=== PATIENT | male | born 1985 | race Caucasian/White ===

== ENCOUNTER 2019-01-25 10:02 | Outpatient (CLI) | payer OTHER, SELFPAY ==
[2019-01-25 11:14] LABS: HCT 44.7 % (40.0-50.0); HGB 14.9 g/dL (13.5-17.5); Mean Corp. HGB Concentration 33.3 g/dL (32.0-36.0); Mean Corpuscular Hemoglobin 28.2 pg (27.0-33.0); Mean Corpuscular Volume 84.7 fL (80-95); Mean Platelet Volume 9.1 fL (8.0-11.0); Platelet Count 349 x1000/uL (130-400); RBC 5.28 m/cumm (4.50-6.00)
[2019-01-25 11:42] LABS: ALT 38 U/L (16-63); AST 35 U/L (15-37); Albumin 4.1 g/dL (3.4-5.0); Alkaline Phosphatase 91 U/L (46-116); Anion Gap 9.4 mmol/L (3-11); BUN 19 mg/dL (7-18); Bilirubin, Total 0.6 mg/dL (0.2-1.0); CO2 29.6 mmol/L (21.0-32.0); CREATININE 1.16 mg/dL (0.70-1.30); Calcium 9.5 mg/dL (8.5-10.1); Calculated LDL 126 mg/dL; Chloride 104 mmol/L (98-107); Cholesterol 199 mg/dL (50-200); Glucose 95 mg/dL (70-100); HDL Cholesterol 50 mg/dL (40-60); Potassium 4.4 mmol/L (3.5-5.1); Sodium 143 mmol/L (136-145); Total Protein 7.9 g/dL (6.4-8.2); Triglyceride 119 mg/dL (30-150)
[2019-01-25 12:12] LABS: Uric Acid 11.2 mg/dL (3.5-7.2)
== END 2019-01-25 10:22 ==
PROVIDERS: PCP Nurse Practitioner; Visit Provider Nurse Practitioner
DX: M10.9 Gout, unspecified (principal); E66.9 Obesity, unspecified
CPT/HCPCS: 80053; 80061; 85027; 84550

== ENCOUNTER 2019-01-28 10:53 | Outpatient (CLI) | payer OTHER, SELFPAY ==
--- NOTE | 2019-01-28 10:45 | DI.RAD_ITS ---
EXAM: XR LUMBAR SPINE COMPLETE INDICATION: sacroiliac pain, low back pain, M53.3, M54.5. COMPARISON: No exams were available for comparison TECHNIQUE: 2D digital imaging was performed. FINDINGS: There are 5 lumbar type vertebral bodies. There is no spondylolysis or spondylolisthesis. The verte bral bodies, posterior elements and disc spaces are all well maintained. Small endplate osteophytes are seen at the L3-L4 disc level. No acute fracture or subluxation is present. Incidental note is m yousuf of densities in the left renal collecting system. The outline conforms to the collecting system. These may represent renal calculi. UPJ obstruction should be considered. IMPRESSION: 1. Minimal degenerative change seen in the lumbar spine. 2. Densities in the left abdomen conforming to the renal collecting system. Nephrolithiasis/staghorn calculi may have this appearance. A renal colic CT should be considered for further evaluation.
--- NOTE | 2019-01-28 10:45 | DI.RAD_ITS ---
EXAM: XR SACROILIAC JOINTS INDICATION: sacroiliac pain, left low back pain, M53.3, M54.5. COMPARISON: No exams were available for comparison TECHNIQUE: 2D digital imaging was performed. FINDINGS: There is no ankylosis. There are degenerative changes seen in the left sacroiliac joint. No erosion s are present. No suspicious lytic or sclerotic lesions are seen. No acute fracture or dislocation.
== END 2019-01-28 11:13 ==
PROVIDERS: PCP Nurse Practitioner; Visit Provider Nurse Practitioner
DX: M54.5 Low back pain (principal); M53.3 Sacrococcygeal disorders, not elsewhere classified; M47.816 Spondylosis without myelopathy or radiculopathy, lumbar region; N28.89 Other specified disorders of kidney and ureter
CPT/HCPCS: 72110; 72202

== ENCOUNTER 2019-04-28 19:45 | Emergency (ER) | payer OTHER, SELFPAY ==
[2019-04-28 19:48] VITALS: BP 161/96; PULSE 91; RESP 20; TEMP 36.8; O2SAT 98
--- NOTE | 2019-04-28 19:51 | ED.GENADUL_ITS ---
Discharge Plan Disposition Patient Disposition: HOME Condition: Good Discharge Details Chief Complaint: Sorethroat Clinical Impression: Pharyngitis Primary Care Provider: Leatha Marsh ED Provider: Sakina Briggs Home Meds and New Rx's Prescriptions: Continued allopurinol 100 mg tablet 100 mg PO DAILY Qty: 90 RF: 1 indomethacin 50 mg capsule 50 mg PO TID PRN (Reason: gout) Qty: 60 RF: 1 Discharge Instructions Instructions: Pharyngitis (ED) Additional Instructions: Encourage water intake. May use Tylenol and/or ibuprofen as needed for discomfort. Please cut back on chewing tobacco. I have sent a referral to ENT, you should hear from care professional in the next few days. If you do not hear from them, please call number listed below. If you develop fever/chills, difficulty swallowing quitting difficulty breathing or other new/worsening symptoms please seek care urgently once again. Referrals: Anjel Cotter MD [ [facility] STAFF PHYSICIAN] - Leatha Marsh NP [Primary Care Provider] - Medical Decision Making Patient is a pleasant 33-year-old male presents today with chief complaint of left side of his throat feeling dry. Denies foreign body sensation. Denies any pain. Has any fevers or chills. No recent travel. He has not had any difficulty with swallowing, eating, breathing. Reports feeling improved with drinking water. Patient has chewed tobacco since he was a freshman in high school and reports smoking prior to that. Denies a nadeem foreign body sensation but does report when his throat becomes dry he is gagging frequently and does believe that there is symptoms of irritation the left side of his throat. On exam, patient is resting comfortably. No visible distal swelling, no tracheal deviation. Posterior oropharynx is mildly erythematous. Patient does gag frequently during exam. He reports this is atypical for him and associates with the sensation he is having in his throat currently. Not appreciate any submandibular swelling, he does have a palpable lymph node on the left side. This is over the area of the unusual sensation. Handling secretions well. No change in his voice. Patient does nontoxic. At this time, do not see any evidence of emergent pathology. With him having no pain, fevers, difficulty swallowing, difficulty breathing not see any evidence of emergent etiology. I do not have concerns for abscess at this time. However, as the patient has been a long-term tobacco user, I am concerned for possible cancerous lesion. However, given the brief length of symptoms and that he is otherwise doing very well at this time, I do not think that CT is appropriate. Rather, I wonder if a direct visualization with ENT would be more appropriate. I will refer him to ENT for further evaluation. He was given return precautions. Patient was given Viscous Lidocaine prior to departure. Encourage water intake. All his questions or concerns were addressed and is agreement this plan. HPI General Mode of arrival: ambulatory . Date/Time Provider Initiated Documentation: 04/28/19 19:51 . Limitations to Documentation: no limitations . Information obtained by: patient, family and RN notes reviewed . History of Present Illness 33 year old M presents to the emergency department with the chief complaint of unusual dry sensation on left side of throat, described as moderate (worse when not drinking fluids), with intensity rated at 1 (denies any pain associated with this). Quality is described as other (dry), and is localized to the mouth. Patient reports no radiation. Patient started experiencing this day(s) (4) and it has been constant. Eating improves symptom(s), Patient notes denies chest pain, cough, diaphoresis, fever/chills, headaches, loss of appetite, nausea/vomiting, rash, shortness of breath and weakness. Patient did receive the following treatments prior to arrival, none Related Data Home Medications Medication Instructions Recorded Confirmed allopurinol 100 mg tablet 100 mg PO DAILY #90 tab 07/02/18 04/28/19 indomethacin 50 mg capsule 50 mg PO TID PRN #60 cap 07/02/18 04/28/19 Previous Rx's Medication Instructions Recorded allopurinol 100 mg tablet 100 mg PO DAILY #90 tab 07/02/18 indomethacin 50 mg capsule 50 mg PO TID PRN #60 cap 07/02/18 Allergies Allergy/AdvReac Type Severity Reaction Status Date / Time amoxicillin Allergy rash Unverified 04/28/19 19:51 Penicillins Allergy rash Verified 04/28/19 19:51 General Stated Complaint: Sorethroat MARIELLA: 3 Review of Systems Constitutional Constitutional: Reports as per HPI and Denies headache(s) Eyes Eyes: Reports as per HPI, Denies eye discharge and Denies irritation ENT Ears, Nose, Mouth, and Throat: Reports as per HPI and Denies headache(s) Cardiovascular Cardiovascular: Reports as per HPI, Denies chest pain and Denies dyspnea Respiratory Respiratory: Reports as per HPI and Denies dyspnea Gastrointestinal Gastrointestinal: Reports as per HPI, Denies abdominal pain, Denies change in bowel habits, Denies nausea and Denies vomiting Integumentary/Breasts Skin/Breast: Reports as per HPI and Denies rash Neurologic Neurologic: Reports as per HPI and Denies headache(s) FOR[facility]LY [facility] Medical History Chronic left sacroiliac joint pain (Acute) Gout (Chronic) Right Foot Family History (Updated 07/02/18 @ 15:17 by Cesia Cordero RN) Maternal Grandmother , lung cancer No problems noted. Mother Lung cancer Sister No problems noted. 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 Frequency: 3-4 times per week Seatbelt use: always Working smoke detector in home: Yes Fire extinguisher in home: Yes Carbon monox detector in home: Yes Firearms in home: No Do you feel safe at home: Yes Do you feel safe in your relationship?: Yes Exam Const General: cooperative, healthy appearing, comfortable, no acute distress, well developed and well groomed Nutritional Appearance: well nourished and overweight Orientation: alert and awake [facility] Head: normal to inspection, normocephalic and atraumatic Ears: hearing grossly normal bilaterally, external ears normal and TM's normal bilaterally General nose exam: external nose normal and nares normal Face and sinus: normal facial exam, sinuses nontender and face symmetric Mouth: oral mucosae normal, lip normal, tongue normal, oropharynx normal and moist mucous membranes Teeth and gingiva: dentition normal Throat: posterior oropharynx abnormal (mild erythema), tonsils normal and uvula midline Eyes General: appearance normal, both eyes and all related structures Neck Neck: normal visual inspection, full ROM, no lymphadenopathy, no meningeal signs, trachea midline, supple, no lymphadenopathy noted, no midline deformity, nontender, no torticollis, no tracheal deviation and No submandibular swelling Thyroid: thyroid normal Resp Effort & Inspection: normal respiratory effort, able to speak in complete sentences and no respiratory distress Auscultation: clear to auscultation bilaterally, no rales, no rhonchi and no wheezes Cardio Rate: regular rate Rhythm: regular rhythm Heart Sounds: S1 normal and S2 normal Skin General skin exam: no rashes or lesions noted Neuro General: alert and awake Cognition: normal cognition Speech: speech normal Gait: normal gait Psych Appearance: grossly normal and well kempt Mental Status: mental status grossly normal Speech and Movement: speech and movement normal Course Vital Signs Vital signs: Vital Signs Temperature 36.8 C 04/28/19 19:48 Pulse 91 H 04/28/19 19:48 Respiratory Rate 04/28/19 19:48 Blood Pressure 161/96 H 04/28/19 19:48 Pulse Oximetry 98 04/28/19 19:48 Temperature 36.8 C 04/28/19 19:48 Temperature Source Temporal Artery Scan 04/28/19 19:48 Pulse 91 H 04/28/19 19:48 Respiratory Rate 04/28/19 19:48 Blood Pressure 161/96 H 04/28/19 19:48 Pulse Oximetry 98 04/28/19 19:48 Oxygen Delivery Method Room Air 04/28/19 19:48 Oxygen Flow Rate 0 04/28/19 19:48 Pain Level 0 04/28/19 19:48
[2019-04-28] MEDS: Lidocaine 2% Viscous 15 ML CUP PO (20:19)
[2019-04-28 20:23] VITALS: BP 161/96; PULSE 91; RESP 20; TEMP 36.8; O2SAT 98
--- NOTE | 2019-04-28 20:53 | NUR.NOTE ---
FAXED REFERAL TO ENT ON 04/28/19Nursing Note:
== END 2019-04-28 20:25 | disposition home or self-care (01) ==
LOC: ER 20:51
PROVIDERS: Emergency Provider Physician Assistant; PCP Nurse Practitioner
DX: J02.9 Acute pharyngitis, unspecified (principal); F17.220 Nicotine dependence, chewing tobacco, uncomplicated
CPT/HCPCS: 99283

== ENCOUNTER 2019-05-08 14:28 | Emergency (ER) | payer OTHER, SELFPAY ==
[2019-05-08] VITALS (25 sets, daily range): BP systolic 127–142; BP diastolic 68–90; PULSE 70–84; RESP 16–18; TEMP 36.1–36.8; O2SAT 92–98
--- NOTE | 2019-05-08 14:45 | DI.CT_ITS ---
EXAM: CT RENAL COLIC WO CLINICAL HISTORY: RIGHT FLANK PAIN TECHNIQUE: Images were performed from the level of the adrenals through the ischial tuberosities wit hout IV or oral contrast. COMPARISON: XR LUMBAR SPINE COMPLETE from 01/28/2019 FINDINGS: There is moderate to severe right hydronephrosis. There is a 12 millimeter stone in the proximal rig ht ureter. Two additional 3 millimeter stones are seen more superiorly in the proximal ureter. Mult iple small stones are seen at the lower pole of the right kidney. Additional calculi are seen distal ly in the right ureter, measuring 19 millimeters in length x 7 millimeters in width. There is some s tranding around the right ureter. There is a large staghorn calculus seen in the left renal pelvis. There is severe dilatation of the collecting system. Multiple other stones are seen in the upper, mid and lower pole collecting system s. The renal parenchymal thickness appears normal. No calcifications or ureteral dilatation is seen distal to the ureteropelvic junction. The bladder shows wall thickening, which is nonspecific. Fin dings could be related to lack of distention. Cystitis is also possible. No bladder calculi are see n. The liver shows mild fatty infiltration. The gallbladder, spleen, pancreas, adrenals and aorta are u nremarkable. Appendix appears normal. There is no bowel dilatation or wall thickening. There is no free air or free fluid. Spine and pelvis are unremarkable. IMPRESSION: Moderate to severe right hydronephrosis. There are multiple calcifications in the right ureter, the l argest is seen distally, just above the ureterovesical junction, measuring 19 millimeters in length. Multiple bilateral renal calculi are seen including a large staghorn calculus in the left renal pelvi s.
--- NOTE | 2019-05-08 14:46 | W.ED.GENAD ---
Discharge Plan Disposition Patient Disposition: [facility] Condition: Stable Discharge Details Chief Complaint: FlankPain Clinical Impression: Nephrolithiasis Primary Care Provider: Leatha Marsh ED Provider: Judy Lombardi Home Meds and New Rx's Prescriptions: No Action indomethacin 50 mg capsule 50 mg PO TID PRN (Reason: gout) Qty: 60 RF: 1 Discharge Data Discharge Date/Time-TO BE ENTERED AT DEPARTURE: 05/08/19 23:40 Medical Decision Making <CLAUDIA Woodall - Last Filed: 05/09/19 05:49> Patient is a pleasant 33 year old male, accompanied by signficant other, with c/c of right sided flank pain. States that he has a history of kidney stones, states that htis feels the same as when he has had them previously. Last stone was 7 months ago. No fevers/chills. Patient reports that the pain radiates from the right flank anteriorly and towards the pelvis. He denies any testicular pain, testicular swelling, penile discomfort, penile discharge. Denies any dysuria. He does report the pain increases after urination. No hematemesis, hematuria. States that he is vomited x5 today. Is currently endorsing nausea. Feels he may be Dehydrated enough unable to keep any fluids down. Denies any recent travel. No known sick contacts. On exam, patient appears nontoxic. He appears well-hydrated. Normal abdominal exam. Right-sided CVA tenderness. Plan to obtain UA, laboratory evaluation and imaging to evaluate size and location of stone. Will give Zofran to help with nausea and Toradol for discomfort. We are contacted by the radiologist. She advised this patient has a very large stones and bilateral hydronephrosis. She does staghorn stones with a large being 6 cm on the left side. This is not the tender area for the patient. On the right side, patient has a 7 x 19 mm stone with moderate to severe hydronephrosis on both sides. She does report that the large staghorn stones had been seen historically on previous imaging. She states that she was able to visualize these on previous x-rays. Will consult with orthopedics. Labs reviewed. Patient is mild leukocytosis of 12.85 with absolute neutrophil count of 10.3. Patient has an acute kidney injury with creatinine of 2.58. Patient is being hydrated. Will consult immediately with urology. Urinalysis concerning for large amount of blood, 20-50 WBCs, few epithelial cells and few bacteria. Will consult with urologist and see if they would like a straight cath on this patient. Feel that he will need intervention sooner rather than later. At the end of my shift, care was transitioned to Betzaida Lombardi NP with follow-up from urology and disposition pending. <Judy Lombardi - Last Filed: 05/08/19 23:02> Care assumed from CLAUDIA Woodall see previously documented history and physical. At this time awaiting callback from Dr. Fernandez urology consult for possible admission. CT result is noted below. EXAM: CT RENAL COLIC WO CLINICAL HISTORY: RIGHT FLANK PAIN TECHNIQUE: Images were performed from the level of the adrenals through the ischial tuberosities without IV or oral contrast. COMPARISON: XR LUMBAR SPINE COMPLETE from 01/28/2019 FINDINGS: There is moderate to severe right hydronephrosis. There is a 12 millimeter stone in the proximal right ureter. Two additional 3 millimeter stones are seen more superiorly in the proximal ureter. Multiple small stones are seen at the lower pole of the right kidney. Additional calculi are seen distally in the right ureter, measuring 19 millimeters in length x 7 millimeters in width. There is some stranding around the right ureter. There is a large staghorn calculus seen in the left renal pelvis. There is severe dilatation of the collecting system. Multiple other stones are seen in the upper, mid and lower pole collecting systems. The renal parenchymal thickness appears normal. No calcifications or ureteral dilatation is seen distal to the ureteropelvic junction. The bladder shows wall thickening, which is nonspecific. Findings could be related to lack of distention. Cystitis is also possible. No bladder calculi are seen. The liver shows mild fatty infiltration. The gallbladder, spleen, pancreas, adrenals and aorta are unremarkable. Appendix appears normal. There is no bowel dilatation or wall thickening. There is no free air or free fluid. Spine and pelvis are unremarkable. IMPRESSION: Moderate to severe right hydronephrosis. There are multiple calcifications in the right ureter, the largest is seen distally, just above the ureterovesical junction, measuring 19 millimeters in length. Multiple bilateral renal calculi are seen including a large staghorn calculus in the left renal pelvis. [id number]: Total DLP = 0.00 mGy-cm Ordered By: Sakina Briggs 165: Spoke with Dr. Fernandez with urology who reccomends transfer to facility with greater capacity for this size of stones than what he has at this facility. Page out to [facility]. 175: Spoke with Dr. Hines with Urology at [facility], discussed case, who agrees to accept patient. 2028: Patient reevaluation he is still not requesting any pain medications and states that his pain is tolerable at this time. Discussed waiting for transport at this time. He will be going to [address] at [facility]. 2258: Patient given Fentanyl 50 mcg IV for pain, EMS on way to pick patient up. Will give one more dose of Fentanyl 50mcg for a total of 100mcg. Patient remained hemodynamically stable throughout stay. This text was generated using emids dictation system, please disregard any oddities of phrase or misspellings. HPI <CLAUDIA Woodall - Last Filed: 05/09/19 05:49> General Mode of arrival: ambulatory. Date/Time Provider Initiated Documentation: 05/08/19 14:29. Limitations to Documentation: no limitations. Information obtained by: patient and family (significant other). History of Present Illness 33 year old M presents to the emergency department with the chief complaint of right flank pain, described as moderate and similar to prior episodes, Quality is described as aching, and is localized to the back. Patient abdomen. Patient started experiencing this day(s) (2) and it has been constant. No relieving factors improve symptom(s), No exacerbating factors reported . Patient notes loss of appetite and nausea/vomiting; denies chest pain, cough, fever/chills, rash, shortness of breath and weakness. Patient did receive the following treatments prior to arrival, none Related Data Home Medications Medication Instructions Recorded Confirmed indomethacin 50 mg capsule 50 mg PO TID PRN #60 cap 07/02/18 05/08/19 Previous Rx's Medication Instructions Recorded indomethacin 50 mg capsule 50 mg PO TID PRN #60 cap 07/02/18 Allergies Allergy/AdvReac Type Severity Reaction Status Date / Time amoxicillin Allergy rash Unverified 05/08/19 14:37 Penicillins Allergy rash Verified 05/08/19 14:37 General Stated Complaint: FlankPain MARIELLA: 3 Review of Systems <CLAUDAI Woodall - Last Filed: 05/09/19 05:49> Constitutional Constitutional: Reports as per HPI, Denies chills, Denies fatigue, Denies fever(s) and Denies headache(s) ENT Ears, Nose, Mouth, and Throat: Denies headache(s) Cardiovascular Cardiovascular: Reports as per HPI, Denies chest pain and Denies dyspnea Respiratory Respiratory: Reports as per HPI, Denies cough and Denies dyspnea Gastrointestinal Gastrointestinal: Reports as per HPI, Denies coffee ground emesis, Reports constipation (last BM 2 days ago, atypical for patient), Reports nausea and Reports vomiting (vomited x 5) Genitourinary Genitourinary: Reports as per HPI, Denies hematuria, Denies difficulty urinating, Denies genital pain, Denies dysuria, Reports flank pain, Denies penile discharge, Denies scrotal swelling, Denies testicular mass, Denies testicular pain, Denies urinary frequency and Denies urinary hesitancy Musculoskeletal Musculoskeletal: Reports as per HPI Neurologic Neurologic: Denies headache(s) Endocrine Endocrine: Denies fatigue PFSH <CLAUDIA Woodall - Last Filed: 05/09/19 05:49> Family History (Updated 07/02/18 @ 15:17 by Cesia Cordero RN) Maternal Grandmother , lung cancer No problems noted. Mother Lung cancer Sister No problems noted. 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 Frequency: 3-4 times per week Seatbelt use: always Working smoke detector in home: Yes Fire extinguisher in home: Yes Carbon monox detector in home: Yes Firearms in home: No Do you feel safe at home: Yes Do you feel safe in your relationship?: Yes Exam <CLAUDIA Woodall - Last Filed: 05/09/19 05:49> Const General: cooperative, healthy appearing, comfortable, no acute distress and well developed Nutritional Appearance: average body habitus and well nourished Orientation: alert and awake HENMT Mouth: moist mucous membranes Resp Effort & Inspection: normal respiratory effort and no respiratory distress Auscultation: clear to auscultation bilaterally, no rales, no rhonchi and no wheezes Cardio Rate: regular rate Rhythm: regular rhythm Heart Sounds: S1 normal and S2 normal GI Inspection: normal to inspection, no edema and non-distended Palpation: soft, no hepatosplenomegaly, no guarding, no hernias, no pulsatile masses and nontender Percussion: normal to percussion Auscultation: normal bowel sounds Back/Spine/Pelvis Back: CVA tenderness (right) Skin General skin exam: no rashes or lesions noted Neuro General: alert and awake Cognition: normal cognition Speech: speech normal Gait: normal gait Psych Appearance: grossly normal and well kempt Mental Status: mental status grossly normal Speech and Movement: speech and movement normal Course <CLAUDIA Woodall - Last Filed: 05/09/19 05:49> Vital Signs Vital signs: Vital Signs Temperature 36.1 C L 05/08/19 14:32 Pulse 84 05/08/19 14:32 Respiratory Rate 18 05/08/19 14:32 Blood Pressure 142/90 H 05/08/19 14:32 Pulse Oximetry 95 05/08/19 14:32 Temperature 36.1 C L 05/08/19 14:32 Temperature Source Temporal Artery Scan 05/08/19 14:32 Pulse 84 05/08/19 14:32 Respiratory Rate 18 05/08/19 14:32 Respiratory Effort Non-Labored 05/08/19 14:37 Blood Pressure 142/90 H 05/08/19 14:32 Blood Pressure Position Sitting 05/08/19 14:32 Pulse Oximetry 95 05/08/19 14:32 Oxygen Delivery Method Room Air 05/08/19 14:32 Oxygen Flow Rate 0 05/08/19 14:32 Pain Level 3 02/21/20 14:32 Sign Out <CLAUDIA Woodall - Last Filed: 05/09/19 05:49> Sign Out Data: Sign Out Comment: Care transition to Judy Lombardi NP with follow-up with urology pending. Last updated by Sakina Briggs PA at 05/08/19 16:23
[2019-05-08] MEDS: Normal Saline 1,000 ML 1000 ML IV (14:56)
[2019-05-08] MEDS: Ondansetron 4 MG/2 ML VIAL IVP ×3 (14:56→17:18)
[2019-05-08 14:57] LABS: Bilirubin Negative (Negative); Blood Large (Negative); Clarity Clear (Clear); Glucose Negative (Negative); Ketones Negative (Negative); Leukocyte Esterase Large (Negative); Nitrite Negative (Negative); Specific Gravity <= 1.005 (1.005-1.025); Urobilinogen 0.2 EU/dL (Up TO 0.2); pH 6.5 (5-8)
[2019-05-08] MEDS: Ketorolac 30 MG/ML VIAL IVP (14:57)
--- NOTE | 2019-05-08 15:07 | NUR.NOTE ---
Nursing Note: Initial 4mg Zofran was charted however not administered due to contamination. Provider Elijah made aware. Addition 4mg ordered IVP.
[2019-05-08 15:09] LABS: Abs Immature Grans 0.03 k/cumm (0.0-0.09); Absolute Basophil Count 0.03 k/cumm (0.0-0.2); Absolute Lymphocyte Count 1.43 k/cumm (1.2-3.4); Absolute Monocyte Count 0.94 k/cumm (0.11-0.7); Absolute Neutrophil Count 10.33 k/cumm (1.2-6.7); Basophils % 0.2; Eosinophils % 0.8; HCT 42.1 % (40.0-50.0); HGB 13.9 g/dL (13.5-17.5); Immature Grans % 0.2 %; Lymphocytes % 11.1; Mean Corpuscular Hemoglobin 27.9 pg (27.0-33.0); Mean Corpuscular Volume 84.4 fL (80-95); Mean Platelet Volume 8.8 fL (8.0-11.0); Monocytes % 7.3; Neutrophils % 80.4; Platelet Count 364 x1000/uL (130-400); RBC 4.99 m/cumm (4.50-6.00); RBC Distribution Width 13.5 % (11.8-14.1); White Blood Cell Count 12.85 k/cumm (4.4-10.8)
[2019-05-08 15:16] LABS: Epithelial Cells Few HPF (Negative); WBC 20-50 HPF (0-5)
[2019-05-08 15:17] LABS: Bacteria Few HPF (Negative); C & S Indicated? Yes; Casts Negative LPF (Negative); Crystals Negative HPF (Negative); Mucus Negative (Negative)
[2019-05-08 15:37] LABS: ALT 21 U/L (16-63); AST 19 U/L (15-37); Albumin 3.6 g/dL (3.4-5.0); Alkaline Phosphatase 84 U/L (46-116); Anion Gap 7.9 mmol/L (3-11); BUN 26 mg/dL (7-18); Bilirubin, Total 0.5 mg/dL (0.2-1.0); CO2 31.1 mmol/L (21.0-32.0); CREATININE 2.58 mg/dL (0.70-1.30); Chloride 103 mmol/L (98-107); Estimated GFR 28.83 (mL/min/1.73m2); Glucose 112 mg/dL (74-106); Potassium 3.6 mmol/L (3.5-5.1); Sodium 142 mmol/L (136-145); Total Protein 7.6 g/dL (6.4-8.2)
[2019-05-08] MEDS: CIPROFLOXACIN 400 MG/200 ML BAG 200 MG IVPB (17:19)
--- NOTE | 2019-05-08 19:34 | NUR.NOTE ---
Nursing Note: PT report transferred to Suri (RN) at [facility]. All PT care information, treatments, and interventions provided at this time. Currently awaiting ambulance transport.
--- NOTE | 2019-05-08 20:51 | NUR.NOTE ---
Nursing Note: PT care report transferred to Obdulio (MACIE).
[2019-05-08] MEDS: fentaNYL 100 MCG/2 ML VIAL 50 MCG IVP ×2 (21:49→23:13)
[2019-05-08] MEDS: Normal Saline Flush 10 ML SYR IVP ×2 (21:49→23:14)
== END 2019-05-08 23:40 | disposition short-term general hospital (02) ==
PROVIDERS: Physician Assistant; Emergency Provider Registered Nurse Emergency; PCP Nurse Practitioner
DX: N20.0 Calculus of kidney (principal)
CPT/HCPCS: 80053; 96361; 96365; 96375; 96376; 99285; 74176; 81003; 81015; 85025; 87086; J0744; J1885; J2405; J3010

== ENCOUNTER 2019-05-31 20:55 | Emergency (ER) | payer OTHER, SELFPAY ==
[2019-05-31 20:59] VITALS: BP 115/87; PULSE 111; TEMP 36.9; O2SAT 99
--- NOTE | 2019-05-31 21:20 | ED.GENADUL_ITS ---
Discharge Plan Disposition Patient Disposition: HOME Condition: Stable Discharge Details Chief Complaint: Urinary Clinical Impression: Pyelonephritis Primary Care Provider: Leatha Marsh ED Provider: Judy Lombardi Home Meds and New Rx's Prescriptions: New sulfamethoxazole-trimethoprim 800-160 mg tablet 1 tab PO BID 10 Days Qty: 20 RF: 0 Continued indomethacin 50 mg capsule 50 mg PO TID PRN (Reason: gout) Qty: 60 RF: 1 tamsulosin [Flomax] 0.4 mg capsule 0.4 mg PO DAILY RF: 0 methylprednisolone [Medrol (David)] 4 mg tablets,dose pack See Rx Instructions .Route .COMPLEX Qty: 21 RF: 0 Discharge Instructions Instructions: Urinary Tract Infection in Men (ED), Catheter-associated Urinary Tract Infection (ED) Additional Instructions: Take antibiotic as directed. Take entire course of antibiotics even if feeling better. Stay out of the sun this antibiotic can make you more sensitive to sunlight. Keep scheduled appointment at [facility] for the of this month. Follow-up or be seen sooner if any worsening, fever, concerns. Take Tylenol every 4-6 hours as needed for fever. Should start feeling better within the next 2 to 3 days if you start feeling worse please return to the ED. Increase oral fluids. Referrals: Leatha Marsh, LADLE REPAIRMAN [Primary Care Provider] - Medical Decision Making 32-year-old male presents with fever and hematuria status post bilateral nephrostomy tube placement at [facility] approximately 1 week ago. Patient was originally diagnosed with a 19 mm ureter stone and multiple very large kidney stones to the collecting ducts. Significant other states that she change the dressing on his left tube insertion site and noticed purulent drainage yesterday. That nephrostomy tube has been in place for 2 weeks. The tube on his right side was placed 1 week ago and has initial dressing on it. The tubes at this time appear to be draining adequately. This is associated with mild burning at insertion sites and diaphoresis. Labs ordered including CBC, CMP urinalysis and lactate. Culture swabs obtained for nephrostomy tube insertion sites and blood cultures ordered. Plan is to consult with urology at [facility] regarding patient. Initial work-up shows a WBC count of 14,000, positive leukocytes and nitrites and urinalysis lactate is 1.4 which is negative at this time. 2203: Call placed to urology at [facility] for consult. 2214: Spoke with Dr. Olmos with [facility] regarding patient She recommends CT without contrast. And starting antibiotics. Levofloxacin 750mg given IVPB in department due to PCN allergy. 2307: Spoke with Dr. Olmos again regarding CT, she reports that catheters seem to be in the right place and patient should tolerate outpatient oral antibiotics. She recommends Bactrim after last urine culture grew staph. Will place patient on Bactrim and DC home with strict return instructions to return or follow up with [facility] prior to scheduled appointment on 06-05-19. FINDINGS: Lungs: Streaky atelectasis at the lung bases. Liver: Grossly unremarkable unenhanced liver. Gallbladder and bile ducts: Gallbladder partially collapsed. No calcified gallstones seen. No biliary dilatation. Pancreas: Grossly unremarkable unenhanced pancreas. Spleen: Grossly unremarkable unenhanced spleen. Adrenals: Normal appearing adrenal glands. Kidneys and ureters: Multiple right pelvic ureteral stones with the largest distal stone measuring 6 mm x 9 mm maximum axial dimension on image 128 of series 2 with stones extending over a length of approximately 3.3 cm upstream to the obstructing distal-most stone. Upstream right-sided ureterectasis and periureteral edema with mild prominence of the right renal collecting system. Percutaneous nephrostomy catheter in situ on the right. Nonobstructing 4 mm x 11 mm right lower pole renal calculus. Massive staghorn calculus largely filling the left renal pelvis measuring 3.0 cm x BISI GOMEZ Preliminary Radiology Report CAR PINCHER (QA) DISCREPANCY? If there is a discrepancy between the preliminary and final interpretation, please notify [facility] via [email or web address]. If you do not have access to our QA portal, call our QA team at [phone] CONFIDENTIALITY STATEMENT This report is intended only for the use of the referring physician, and only in accordance with law, If you received this in error, call [phone] Page 2 of 2 3.7 cm x 4.4 cm. Multiple large and small nonobstructing left renal calculi. Percutaneous nephrostomy catheter distally looped around the staghorn calculus in the renal pelvis. Moderate peripelvic and proximal periureteral edema but no gross hydronephrosis. Punctate focus of gas in the left renal collecting system, presumably stent related. No distal left ureteral calculus. Stomach and bowel: No oral contrast. Stomach partially distended with ingested material. No small bowel dilatation to suggest obstruction. Normal-appearing colon. No evidence of diverticulitis or colitis. Appendix: Normal appendix. Intraperitoneal space: No gross ascites or free air. Vasculature: Normal caliber abdominal aorta. Lymph nodes: No pathologically enlarged mesenteric, retroperitoneal, or pelvic sidewall lymph nodes. Bladder: Urinary bladder completely collapsed. Reproductive: Normal-appearing prostate gland and seminal vesicles. Bones/joints: No acute fracture seen among the bones of the abdomen or pelvis. Soft tissues: No significant ventral or inguinal hernia. IMPRESSION: 1. Obstructing 6 mm x 9 mm distal right ureteral calculus. Multiple additional distal right ureteral calculi extending over a length of 3.3 cm upstream from the obstructing stone. Diffuse right-sided ureterectasis and mild prominence of the right renal collecting system. Percutaneous nephrostomy catheter in situ on the right. 2. Massive staghorn calculus largely filling the left renal pelvis. Multiple large and small nonobstructing left renal calculi. Percutaneous nephrostomy catheter with its distal portion encircling the staghorn calculus in the renal pelvis. Moderate peripelvic and proximal periureteral edema but no superimposed hydronephrosis. Thank you for allowing us to participate in the care of your patient. Dictated and Authenticated by: Ron Ochoa MD 05/31/2019 11:03 PM Eastern Time ([place] & [place]) This time I feel it is safe for patient to be discharged home on oral antibiotics. Strict return instructions given to return if worsening in any way. Blood cultures at this time are pending, wound culture also obtained and shows rare gram-positive cocci no WBCs. Diagnosis given for pyelonephritis and catheter related UTI. Differential diagnosis includes UTI, renal perforation, renal abscess, septicemia. HPI General Mode of arrival: ambulatory . Date/Time Provider Initiated Documentation: 05/31/19 20:56 . Limitations to Documentation: no limitations . Information obtained by: patient . HPI Narrative: 32-year-old male presents with fever and hematuria status post bilateral nephrostomy tube placement at [facility] approximately 1 week ago. Patient was originally diagnosed with a 19 mm ureter stone and multiple very large kidney stones to the collecting ducts. Significant other states that she change the dressing on his left stent and noticed purulent drainage yesterday. That tube has been in place for 2 weeks. The tube on his right side was placed 1 week ago and has initial dressing on it. This is associated with mild burning and insertion sites and diaphoresis. Related Data Home Medications Medication Instructions Recorded Confirmed indomethacin 50 mg capsule 50 mg PO TID PRN #60 cap 07/02/18 05/31/19 methylprednisolone 4 mg tablets in See Rx Instructions .ROUTE 05/25/19 05/31/19 a dose pack .COMPLEX #21 dose pk tamsulosin 0.4 mg capsule 0.4 mg PO DAILY 05/25/19 05/31/19 sulfamethoxazole-trimethoprim 1 tab PO BID 10 Days #20 tab 05/31/19 Previous Rx's Medication Instructions Recorded indomethacin 50 mg capsule 50 mg PO TID PRN #60 cap 07/02/18 methylprednisolone 4 mg tablets in See Rx Instructions .ROUTE 05/25/19 a dose pack .COMPLEX #21 dose pk sulfamethoxazole-trimethoprim 1 tab PO BID 10 Days #20 tab 05/31/19 Allergies Allergy/AdvReac Type Severity Reaction Status Date / Time amoxicillin Allergy rash Unverified 05/31/19 21:06 Penicillins Allergy rash Verified 05/31/19 21:06 General Stated Complaint: Urinary MARIELLA: 3 Review of Systems Narrative: Constitutional: Negative for weight loss, alert and oriented, well groomed, normal body habitus, appears comfortable. Positive subjective fever HEENT: Denies trauma, headaches, blurry vision, nasal discharge, sore throat, trouble swallowing. Chest: Denies chest pain, palpitations, irregular rhythm, hypertension. Respiratory: Denies Shortness of breath, cough, hemoptysis. GI: Denies abdominal pain, nausea, vomiting, diarrhea, constipation. : Denies rectal bleeding. Positive hematuria and flank pain bilaterally. Neuro: Denies dizziness, blurry vision, weakness, syncope, headache or facial numbness. Hematologic: Denies easy bruising, intolerance to heat or cold, hair loss. [facility] Medical History Chronic left sacroiliac joint pain (Acute) Gout (Chronic) Right Foot Family History Maternal Grandmother , lung cancer No problems noted. Mother Lung cancer Sister No problems noted. 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 Frequency: 3-4 times per week Seatbelt use: always Working smoke detector in home: Yes Fire extinguisher in home: Yes Carbon monox detector in home: Yes Firearms in home: No Do you feel safe at home: Yes Do you feel safe in your relationship?: Yes Exam Narrative Exam Narrative: Constitutional: Allert and oriented x3. Appears stated age. Normal body habitus. Patient is diaphoretic. Head: Normocephalic, no trauma. Eyes: Pupils PERRLA, Red reflex noted, EOM's intact. Eyelids symmetrical withour lesions, discharge, or swelling. ENT: Bilateral TM's WNL, External ear normal to inspection, no mastoid TTP, swelling, or erythema, Nasal turbinates WNL, no nasal discharge. Normal dentition, Posterior pharynx WNL, no exudate. Chest: RRR, Normal S1, S2, distal pulses intact. Resp: Lungs clear to auscultation bilaterally, no wheezes, rales, or rhonchi. Musculoskeletal: Normal gait, 5/5 strength to all four extremities. Skin: No suspicious rashes or lesions. Capillary refill ?2 sec. dressings changed to the bilateral tube sites and some brownish purulent drainage and small amount of erythema noted around the insertion site to the left tube. Right tube insertion site just shows dried blood. Neurologic: Cranial nerves II-XII intact. Alert and oriented x 3. DTR's intact. Hematologic/Lymphatic: No ecchymosis, no lymphadenopathy. Course Vital Signs Vital signs: Vital Signs Temperature 36.9 C 05/31/19 20:59 Pulse 111 H 05/31/19 20:59 Blood Pressure 115/87 05/31/19 20:59 Pulse Oximetry 99 05/31/19 20:59 Temperature 36.9 C 05/31/19 20:59 Temperature Source Oral 05/31/19 20:59 Pulse 111 H 05/31/19 20:59 Respiratory Effort Non-Labored 05/31/19 21:07 Blood Pressure 115/87 05/31/19 20:59 Blood Pressure Position Sitting 05/31/19 20:59 Pulse Oximetry 99 05/31/19 20:59 Oxygen Delivery Method Room Air 05/31/19 20:59 Oxygen Flow Rate 0 05/31/19 20:59 Pain Level 5 05/31/19 21:07
[2019-05-31 21:29] LABS: Bilirubin Negative (Negative); Blood Large (Negative); Clarity Cloudy (Clear); Glucose Negative (Negative); Ketones Negative (Negative); Leukocyte Esterase Large (Negative); Nitrite Positive (Negative); Urobilinogen 0.2 EU/dL (Up TO 0.2)
[2019-05-31 21:37] LABS: Abs Immature Grans 0.04 k/cumm (0.0-0.09); Absolute Basophil Count 0.04 k/cumm (0.0-0.2); Absolute Eosinophil Count 0.45 k/cumm (0.0-0.7); Absolute Lymphocyte Count 2.51 k/cumm (1.2-3.4); Absolute Monocyte Count 1.28 k/cumm (0.11-0.7); Absolute Neutrophil Count 10.55 k/cumm (1.2-6.7); Basophils % 0.3; HCT 40.6 % (40.0-50.0); HGB 13.3 g/dL (13.5-17.5); Immature Grans % 0.3 %; Lymphocytes % 16.9; Mean Corp. HGB Concentration 32.8 g/dL (32.0-36.0); Mean Corpuscular Hemoglobin 27.4 pg (27.0-33.0); Mean Corpuscular Volume 83.5 fL (80-95); Mean Platelet Volume 8.5 fL (8.0-11.0); Monocytes % 8.6; Neutrophils % 70.9; Platelet Count 463 x1000/uL (130-400); RBC 4.86 m/cumm (4.50-6.00); RBC Distribution Width 13.4 % (11.8-14.1); White Blood Cell Count 14.88 k/cumm (4.4-10.8)
[2019-05-31 21:42] LABS: RBC >50 HPF (0-2); WBC >50 HPF (0-5)
[2019-05-31 21:43] LABS: C & S Indicated? Yes
[2019-05-31 21:55] LABS: ALT 25 U/L (16-63); AST 17 U/L (15-37); Albumin 3.5 g/dL (3.4-5.0); Alkaline Phosphatase 111 U/L (46-116); Anion Gap 11.7 mmol/L (3-11); BUN 29 mg/dL (7-18); Bilirubin, Total 0.4 mg/dL (0.2-1.0); CO2 29.3 mmol/L (21.0-32.0); CREATININE 1.49 mg/dL (0.70-1.30); Calcium 8.7 mg/dL (8.5-10.1); Chloride 99 mmol/L (98-107); Estimated GFR 54.32 (mL/min/1.73m2); Glucose 102 mg/dL (74-106); Potassium 4.1 mmol/L (3.5-5.1); Sodium 140 mmol/L (136-145); Total Protein 8.3 g/dL (6.4-8.2)
--- NOTE | 2019-05-31 22:15 | DI.CT_ITS ---
EXAM: CT RENAL COLIC WO CLINICAL HISTORY: Evaluate nephrostomy tubes. TECHNIQUE: Imaging Protocol: Axial computed tomography images with coronal and sagittal reformatted images were created and reviewed. COMPARISON: CT RENAL COLIC WO from 05/08/2019 FINDINGS: ABDOMEN: Lung Bases: Bilateral basilar infiltrates. This may represent atelectasis or pneumonia. Liver: Normal density. No measurable mass. Gallbladder and biliary tract: No radiodense calculus or dilation. Pancreas: Normal density, no abnormal calcifications or inflammatory process. Spleen: Normal. Kidneys: Normal size, contour and axis. On the right, there are stones seen within the distal ureter. The largest is the most distal and measures 9 mm in diameter. There are several stones in the uret er upstream. This does cause mild to moderate hydroureteronephrosis. There is right nephrolithiasis . The right nephrostomy tube is in good position within the renal pelvis. On the left, there is a l arge staghorn calculus present. There are multiple nonobstructing stones in the left kidney. There is no hydronephrosis. There is a left nephrostomy tube in position. Adrenal glands: No masses seen. Lymph nodes: Within normal limits. Abdominal Aorta: Abdominal portion non-dilated. Minimal atherosclerosis. PELVIS: Bladder: The bladder is not distended. No bladder stones are identified. Bowel: No obstruction or bowel wall thickening. The appendix is normal in size without evidence of ad jacent mesenteric fat stranding or adjacent fluid collection. Peritoneal cavity: No ascites, collection or mesenteric inflammatory response. Reproductive organs: Within normal limits. Bones: Within normal limits. IMPRESSION: 1. On the right, 9 mm distal obstructing right ureteral stone causing [id number] hydronephrosis . Several stones are seen within the ureter upstream. 2. On the left, massive staghorn calculus and multiple nonobstructing stones. No hydronephrosis. 3. Bilateral nephrostomy tubes which appear in good position. DATA REPOSITORY: All CT scans at this facility are submitted to the National Radiology Data Registry (NRDR) Dose Index Registry (DIR) with the [employer] (A[employer]). RADIATION OPTIMIZATION: All CT scans at this facility use at least one of these dose optimization te chniques: automated exposure control; mA and/or kV adjustment per patient size (includes targeted exa ms where dose is matched to clinical indication); or iterative reconstruction.
[2019-05-31] MEDS: levoFLOXacin 750 MG/150 ML BAG 100 MG IVPB (22:50)
--- NOTE | 2019-05-31 23:04 | DI.VRAD_ITS ---
PROCEDURE INFORMATION: Exam: CT Abdomen And Pelvis Without Contrast Exam date and time: 05/31/2019 10:23 PM Age: 33 years old Clinical indication: Abdominal pain; Flank; Other: Bilat; Prior surgery; Surgery date: 3-7 days post-operative; Surgery type: Nephrostomy tubes, one week ago on one side and two weeks ago on the other; Patient HX: Evaluate nephrostomy tubes TECHNIQUE: Imaging protocol: Computed tomography of the abdomen and pelvis without contrast. Radiation optimization: All CT scans at this facility use at least one of these dose optimization techniques: automated exposure control; mA and/or kV adjustment per patient size (includes targeted exams where dose is matched to clinical indication); or iterative reconstruction. COMPARISON: CT RENAL COLIC WO 05/08/2019 3:49 PM FINDINGS: Lungs: Streaky atelectasis at the lung bases. Liver: Grossly unremarkable unenhanced liver. Gallbladder and bile ducts: Gallbladder partially collapsed. No calcified gallstones seen. No biliary dilatation. Pancreas: Grossly unremarkable unenhanced pancreas. Spleen: Grossly unremarkable unenhanced spleen. Adrenals: Normal appearing adrenal glands. Kidneys and ureters: Multiple right pelvic ureteral stones with the largest distal stone measuring 6 mm x 9 mm maximum axial dimension on image 128 of series 2 with stones extending over a length of approximately 3.3 cm upstream to the obstructing distal-most stone. Upstream right-sided ureterectasis and periureteral edema with mild prominence of the right renal collecting system. Percutaneous nephrostomy catheter in situ on the right. Nonobstructing 4 mm x 11 mm right lower pole renal calculus. Massive staghorn calculus largely filling the left renal pelvis measuring 3.0 cm x 3.7 cm x 4.4 cm. Multiple large and small nonobstructing left renal calculi. Percutaneous nephrostomy catheter distally looped around the staghorn calculus in the renal pelvis. Moderate peripelvic and proximal periureteral edema but no gross hydronephrosis. Punctate focus of gas in the left renal collecting system, presumably stent related. No distal left ureteral calculus. Stomach and bowel: No oral contrast. Stomach partially distended with ingested material. No small bowel dilatation to suggest obstruction. Normal-appearing colon. No evidence of diverticulitis or colitis. Appendix: Normal appendix. Intraperitoneal space: No gross ascites or free air. Vasculature: Normal caliber abdominal aorta. Lymph nodes: No pathologically enlarged mesenteric, retroperitoneal, or pelvic sidewall lymph nodes. Bladder: Urinary bladder completely collapsed. Reproductive: Normal-appearing prostate gland and seminal vesicles. Bones/joints: No acute fracture seen among the bones of the abdomen or pelvis. Soft tissues: No significant ventral or inguinal hernia. IMPRESSION: 1. Obstructing 6 mm x 9 mm distal right ureteral calculus. Multiple additional distal right ureteral calculi extending over a length of 3.3 cm upstream from the obstructing stone. Diffuse right-sided ureterectasis and mild prominence of the right renal collecting system. Percutaneous nephrostomy catheter in situ on the right. 2. Massive staghorn calculus largely filling the left renal pelvis. Multiple large and small nonobstructing left renal calculi. Percutaneous nephrostomy catheter with its distal portion encircling the staghorn calculus in the renal pelvis. Moderate peripelvic and proximal periureteral edema but no superimposed hydronephrosis. Dictated and Authenticated by: Ron Ochoa MD. Ordering:DEONDRE Kim MD
[2019-06-01 00:29] VITALS: BP 119/73; PULSE 93; RESP 16; O2SAT 96
== END 2019-06-01 00:30 | disposition home or self-care (01) ==
PROVIDERS: Emergency Provider Registered Nurse Emergency; PCP Nurse Practitioner
DX: T83.511A Infection and inflammatory reaction due to indwelling urethral catheter, initial encounter (principal); N10 Acute pyelonephritis; N20.2 Calculus of kidney with calculus of ureter; B95.61 Methicillin susceptible Staphylococcus aureus infection as the cause of diseases classified elsewhere; Y83.1 Surgical operation with implant of artificial internal device as the cause of abnormal reaction of the patient, or of later complication, without mention of misadventure at the time of the procedure
CPT/HCPCS: 36415; 80053; 87040; 87070; 87077; 96365; 99284; 74176; 81003; 81015; 83605; 85025; 87086; 87186; 87205; 99285; J1956; J3490

== ENCOUNTER 2020-04-15 02:27 | Outpatient (CLI) | payer OTHER, SELFPAY ==
[2020-04-15 13:15] LABS: HCT 49.1 % (40.0-50.0); HGB 15.8 g/dL (13.5-17.5); MCH 27.6 pg (27.0-33.0); MCHC 32.2 % (32.0-36.0); MCV 85.8 fL (80-95); MPV 8.8 fL (8.0-11.0); Platelet Count 321 10^3/uL (130-400); RBC 5.72 10^6/uL (4.36-5.78); RDW 13.2 % (11.8-14.1)
[2020-04-15 14:07] LABS: ALT 32 U/L (16-63); AST 18 U/L (15-37); Albumin 3.9 g/dL (3.4-5.0); Alkaline Phosphatase 103 U/L (46-116); Anion Gap 7.1 mmol/L (3-11); BUN 17 mg/dL (7-18); Bilirubin, Total 0.6 mg/dL (0.2-1.0); CO2 30.9 mmol/L (21.0-32.0); CREATININE 1.1 mg/dL (0.70-1.30); Calcium 9.5 mg/dL (8.5-10.1); Calculated LDL 85 mg/dL (<100); Chloride 103 mmol/L (98-107); Cholesterol 181 mg/dL (<200); Glucose 91 mg/dL (74-106); HDL Cholesterol 52 mg/dL (40-60); Potassium 4.6 mmol/L (3.5-5.1); Sodium 141 mmol/L (136-145); Total Protein 7.8 g/dL (6.4-8.2); Triglyceride 221 mg/dL (<150)
[2020-04-15 14:17] LABS: Uric Acid 8.3 mg/dL (3.5-7.2)
== END 2020-04-15 02:47 ==
PROVIDERS: PCP Nurse Practitioner; Visit Provider Nurse Practitioner
DX: E11.9 Type 2 diabetes mellitus without complications (principal); M10.9 Gout, unspecified; N20.0 Calculus of kidney; E66.9 Obesity, unspecified
CPT/HCPCS: 36415; 80053; 80061; 85027; 83036; 84550

== ENCOUNTER 2021-06-13 02:53 | Outpatient (CLI) | payer OTHER, SELFPAY ==
[2021-06-13 15:36] LABS: HCT 41.9 % (40.0-50.0); HGB 13.8 g/dL (13.5-17.5); MCH 27.6 pg (27.0-33.0); MCHC 32.9 % (32.0-36.0); MCV 83.8 fL (80-95); MPV 8.8 fL (8.0-11.0); Platelet Count 291 10^3/uL (130-400); RDW 12.7 % (11.8-14.1); RDW-SD 37.9 fL; WBC 7.32 10^3/uL (4.4-10.8)
[2021-06-13 15:48] LABS: Hemoglobin A1C 5.9 % (<5.7)
[2021-06-13 16:49] LABS: ALT 38 U/L (16-63); AST 32 U/L (15-37); Albumin 3.9 g/dL (3.4-5.0); Alkaline Phosphatase 102 U/L (46-116); Anion Gap 7.5 mmol/L (3-11); BUN 18 mg/dL (7-18); Bilirubin, Total 0.5 mg/dL (0.2-1.0); CO2 30.5 mmol/L (21.0-32.0); CREATININE 0.9 mg/dL (0.70-1.30); Calcium 9.4 mg/dL (8.5-10.1); Chloride 104 mmol/L (98-107); Glucose 76 mg/dL (74-106); Potassium 4.3 mmol/L (3.5-5.1); Sodium 142 mmol/L (136-145); Total Protein 7.4 g/dL (6.4-8.2); Uric Acid 8.3 mg/dL (3.5-7.2)
== END 2021-06-13 02:54 | disposition home or self-care (01) ==
LOC: LBO 02:53
PROVIDERS: PCP Nurse Practitioner; Visit Provider Nurse Practitioner
DX: R73.03 Prediabetes (principal); M25.522 Pain in left elbow
CPT/HCPCS: 36415; 80053; 85027; 83036; 84550

== ENCOUNTER → 2023-04-23 17:45 | Outpatient (CLI) | payer BC, SELFPAY ==
--- NOTE | 2023-04-23 16:00 | DI.RAD_ITS ---
Exam(s) XR HAND LT COMPLETE EXAM: XR HAND LT COMPLETE CLINICAL HISTORY: Pain. ? FB. Was moving wood pallets M79.642 PAIN LT HAND M79.5 FB. TECHNIQUE: 2D digital imaging was performed. COMPARISON: No exams were available for comparison FINDINGS: 3 views No evidence of fracture nor dislocation nor radiopaque foreign body. Bone density normal. No osseou s lesions nor erosions. No evidence of osteomyelitis. IMPRESSION: No significant osseous findings in the left hand. DATA REPOSITORY: RADIATION DOSE DELIVERED:
== END ==
PROVIDERS: PCP Nurse Practitioner; Visit Provider Nurse Practitioner
DX: M79.642 Pain in left hand
CPT/HCPCS: 73130

== ENCOUNTER 2024-01-09 13:35 | Emergency (ER) | payer BC, SELFPAY ==
[2024-01-09 13:37] VITALS: BP 152/91; PULSE 96; RESP 16; TEMP 36.6
[2024-01-09 13:44] VITALS: RESP 18
--- NOTE | 2024-01-09 13:45 | DI.RAD_ITS ---
Exam(s) XR FOOT RT COMPLETE EXAM: XR FOOT RT COMPLETE CLINICAL HISTORY: redness, swelling. TECHNIQUE: 2D digital imaging was performed of the right foot. Three images were obtained. AP, obl ique and lateral views were obtained. COMPARISON: No exams were available for comparison FINDINGS: BONES: No acute fracture is present. No bony destructive lesion is seen. There is a bipartite lateral sesamoid at the head of the 1st metatarsal. JOINTS: No dislocation present. There are degenerative changes seen at the ankle SOFT TISSUE: Normal. IMPRESSION: No acute fracture or dislocation. DATA REPOSITORY: RADIATION DOSE DELIVERED:
--- NOTE | 2024-01-09 14:07 | W.ED.GENAD ---
Discharge Plan Disposition Patient Disposition: Home Condition: Good Discharge Details Clinical Impression: Gout Primary Care Provider: Leatha Marsh ED Provider: Adrienne Basurto Home Meds and New Rx's Prescriptions: Continued ibuprofen 200 mg tablet 600 mg PO Q6H PRN Patient Comments: Takes 2-3 tabs (400-600 mg) Q6-8H acetaminophen 325 mg tablet 975 mg PO Q6H PRN Rx Instructions: constipation per [facility] note dated 06/11/19 cgc Changed indomethacin 25 mg capsule 50 mg PO TID PRN (Reason: gout) 5 Days Qty: 90 1RF Rx Instructions: administer with food or milk Discharge Instructions Instructions: Gout, Low Purine Diet Additional Instructions: Please call your primary care provider first thing in the morning to schedule follow-up appointment to discuss gout prevention. I recommend that you follow a low purine diet. I have prescribed for you a short course of indomethacin. You may take up to 3 times a day for 5 days. Return to emergency care if you develop new fevers/chills, general malaise, worsening swelling of the ankle or knee redness, inability to bear weight, numbness/tingling to your foot or toes, or if you are very worried and need to be rechecked again immediate Referrals: Leatha Marsh, CAREER DEVELOPMENT COORDINATOR/TEACHER [Primary Care Provider] - HPI General Date/Time Provider Initiated Documentation: 01/09/24 13:46. HPI Narrative: Omar is a 38 year old male with history of gout (knees, ankle, elbows) and kidney stones who presents to the ED today for evaluation of R ankle pain and swelling. He reports symptoms started 2 days ago, pain affects lateral side of R ankle and bottom of foot, is aggravated with movement (flexion, eversion/inversion) and weight bearing. Overall reports feeling well, denies systemic symptoms such as fever/chills, general malaise, change in appetite. He has responded well to indomethacin in the past. No known trauma or skin lesions/inciting incident. He says this is similar to previous episodes of gout. Physical exam remarkable for significant tenderness with palpation of lateral malleolus of right ankle; there is also warmth to this area but no erythema. No overlying skin tears/ecchymosis/abrasions. Limited flexion and eversion/inversion due to discomfort. Distal pulses intact, brisk cap refill. Movement intact to toes. Normal left foot. DDx includes but is not limited to: Gout, soft tissue injury, bony abnormality. Presentation not concerning for septic joint at this time, as pt is able to range joint and there is no overlying erythema or systemic symptoms. I independently interpreted the following tests: Uric acid elevated at 10.1. CBC and BMP unremarkable. Related Data Home Medications ?Medication ?Instructions ?Recorded ?Confirmed acetaminophen 325 mg tablet 975 mg PO Q6H PRN 06/15/19 01/09/24 ibuprofen 200 mg tablet 600 mg PO Q6H PRN 12/14/22 01/09/24 indomethacin 25 mg capsule 50 mg (2 x 25 mg) PO TID PRN gout 01/09/24 5 days #90 caps Previous Rx's ?Medication ?Instructions ?Recorded indomethacin 25 mg capsule 50 mg (2 x 25 mg) PO TID PRN gout 01/09/24 5 days #90 caps Allergies Allergy/AdvReac Type Severity Reaction Status Date / Time amoxicillin Allergy rash Verified 01/09/24 13:41 Penicillins Allergy rash Verified 01/09/24 13:41 General Stated Complaint: GenMedical MARIELLA: 4 Review of Systems Narrative: see HPI Exam Const General: cooperative, healthy appearing, comfortable, no acute distress, well developed and well groomed Nutritional Appearance: average body habitus Orientation: alert and oriented x3 Resp Effort & Inspection: normal respiratory effort and able to speak in complete sentences Neuro General: tone normal, moves all extremities and no focal motor deficits Extrem General: no pedal edema Right lower extremity: knee Details: normal to inspection, lower leg Details: normal to inspection, ankle Details: tenderness, swelling and abnormal ROM Details: pain with active ROM; no abrasions, no lacerations and no ecchymosis and foot Details: tenderness Location: of the plantar foot Location: proximally and toes with normal ROM; no edema, no abrasion, no laceration, no ecchymosis and no crepitus Left lower extremity: ankle Details: normal to inspection and foot Details: normal to inspection Course Vital Signs Vital signs: Vital Signs Temperature 36.6 C 01/09/24 13:37 Pulse 96 H 01/09/24 13:37 Respiratory Rate 16 01/09/24 13:37 Blood Pressure 152/91 H 01/09/24 13:37 Temperature 36.6 C 01/09/24 13:37 Temperature Source Temporal Artery Scan 01/09/24 13:37 Pulse 96 H 01/09/24 13:37 Respiratory Rate 18 01/09/24 13:44 Respiratory Effort Normal 01/09/24 13:44 Respiratory Depth Normal 01/09/24 13:44 Respiratory Pattern Normal 01/09/24 13:44 Blood Pressure 152/91 H 01/09/24 13:37 Pain Level 7 01/09/24 13:37 Medical Decision Making Imaging Data Radiologic Study: Radiologist's impression: Exam(s) CT THORAX ABD/PEL CTA EXAM: CT THORAX ABD/PEL CTA CLINICAL HISTORY: RUQ pain radiating , h/o abdominal artery stenting. TECHNIQUE: Imaging Protocol: Axial CT angiography was performed with multi-slice acquisition and multi-planar and/or 3D reconstructions. Computer aided detection (CAD) was utilized. CONTRAST MATERIAL: Intravenous: Omnipaque 350 contrast volume:125 mL Oral: No COMPARISON: CT CT RENAL COLIC WO from 04/04/[address] CHEST PE CTA from 09/07/2023 FINDINGS: CHEST: Tracheobronchial tree: Patent where visualized. No evidence of bronchiectasis. Pulmonary parenchyma: No consolidation or dominant measurable mass. No architectural distortion. Pulmonary Arteries: No evidence of a pulmonary embolism. Mediastinum and Annalisa: No dominant adenopathy or fluid collection. Visualized thyroid: Unremarkable. Pleura: No effusion or pneumothorax. Heart: There is cardiomegaly particularly involving the atria. There is no evidence of right heart strain. Coronary artery calcification is present. No pericardial effusion. Aorta: Thoracic aorta non-dilated. There is no evidence of dissection. Atherosclerotic calcification is present. Soft Tissues: Unremarkable. Bones: Within normal limits for the patient's age.There is a nonunited old right clavicular fracture. ABDOMEN AND PELVIS: Abdomen: Celiac axis/mesenteric arteries: No evidence of occlusion or significant stenosis. There is a patent stent in the proximal superior mesenteric artery. Renal Arteries: No evidence of occlusion or significant stenosis. Minimal atherosclerotic calcification is seen at the origin of the right renal artery. Aorta: No evidence of occlusion or significant stenosis. No aneurysm or dissection. Atherosclerotic calcification is present. Pelvis: Iliac Arteries: No evidence of occlusion or significant stenosis. Atherosclerotic calcification is present. Common Femoral Arteries: No evidence of occlusion or significant stenosis. Atherosclerotic calcification is present on the right. ABDOMEN: Liver: Normal density. No measurable mass. Gallbladder and Biliary Tract: No radiodense calculus or dilation. Pancreas: Normal density, no abnormal calcifications or inflammatory process. Spleen: Normal. Adrenals: No masses seen. Kidneys: Normal size, contour and axis. No radiodense stones or obstructive uropathy. No masses seen. Bowel: There is contrast seen in the colon which may reflect a recent radiology gastrointestinal examination. This does limit evaluation in the pelvis no obstruction or bowel wall thickening. No evidence of appendicitis. Peritoneal Cavity: No ascites, collection or mesenteric inflammatory response. No free air. Lymph Nodes: Within normal limits. Bones: Within normal limits for the patient's age. Soft Tissues: Unremarkable. PELVIS: Bladder: Symmetric distention, no gross wall thickening. Reproductive Organs: The uterus is not visualized. Lymph Nodes: Within normal limits. Bones: Within normal limits for the patient's age. IMPRESSION: 1. No evidence of a pulmonary embolism, thoracic aortic dissection or aneurysm. 2. No evidence of abdominal aortic dissection or aneurysm. 3. Acute pulmonary process. 4. No acute abdominal or pelvic process. Quality:SDOH Health Related Social Needs: No Data to Display PFSH All Active Problems Cystinuria (Acute) Dental infection (Acute) Abnormal blood chemistry (Acute) Globus sensation (Acute) 06/03/19 Dr Cotter , laryngoscopy. f/u in 2 months HUSSAIN (acute kidney injury) (Acute) Pharyngitis (Acute) 06/03/19 Dr Cotter, 2M f/u scheduled Nephrolithiasis (Chronic) 06/24/19- cysto,stent removal (left) [facility] [place] [facility], Catrachito Uriostegui jr, MD Chronic left sacroiliac joint pain (Acute) Left low back pain (Acute) Dental caries (Chronic) Gout (Chronic) Obesity (Chronic) Tobacco chew use (Chronic) Medical History (Updated 01/09/24 @ 15:12 by Adrienne Mehta) Gout Right Foot Surgical History (Updated 09/15/19 @ 10:06 by Alicia Reeves RN) History of nephrolithotomy with removal of calculi (06/11/19) [facility] s/p b/l PCN placement and removal of rgt stent 07/05-L ureteral stent removal,Dr Uriostegui History of laryngoscopy 06/03/19 Dr Cotter Family History Maternal Grandmother , lung cancer No problems noted. Mother Lung cancer Sister No problems noted. 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 Frequency: 3-4 times per week Seatbelt use: always Working smoke detector in home: Yes Fire extinguisher in home: Yes Carbon monox detector in home: Yes Firearms in home: No Do you feel safe at home: Yes Do you feel safe in your relationship?: Yes PAWSS Have you Been Recently Intoxicated or Drunk Within the Last 30 days?: No Have you Ever Experienced Previous Episodes of Alcohol Withdrawal?: No Have you ever Experienced Withdrawal Seizures?: No Have you ever Experienced Delirium Tremens(DT)s?: No Have you ever undergone Alcohol Rehabilitation Treatment (i.e, inpt ot outpatient treatment programs)?: No Have you ever Experienced Blackouts?: No Have you ever Combined Alcohol with other Downers within the last 90 days?: No Have you ever Combined Alcohol with any other Substance of Abuse during the last 90 days?: No Positive Blood Alcohol level on Presentation? [PCS.BAL]: No Evidence of Increased Autonomic Activity (i.e. HR>120, tremor, sweating, agitation, nausea)?: No Result: 0
[2024-01-09 14:13] LABS: Abs Immature Grans 0.04 10^3/uL (0.0-0.06); Absolute Basophil Count 0.04 10^3/uL (0.0-0.2); Absolute Eosinophil Count 0.12 10^3/uL (0.0-0.7); Absolute Lymphocyte Count 1.73 10^3/uL (1.2-3.4); Absolute Monocyte Count 0.49 10^3/uL (0.1-0.8); Absolute Neutrophil Count 4.37 10^3/uL (1.2-6.7); Basophils % 0.6 %; Eosinophils % 1.8 %; HCT 47.1 % (40.0-50.0); Immature Grans % 0.6 %; Lymphocytes % 25.5 %; MCH 27.8 pg (27.0-33.0); MCHC 31.8 % (32.0-36.0); MCV 87 fL (80-95); MPV 8.7 fL (8.0-11.0); Monocytes % 7.2 %; Neutrophils % 64.3 %; Platelet Count 269 10^3/uL (130-400); RBC 5.39 10^6/uL (4.36-5.78); RDW-SD 44.8 fL; WBC 6.79 10^3/uL (4.4-10.8)
[2024-01-09 14:28] LABS: BUN 21 mg/dL (7-18); Calcium 9.7 mg/dL (8.5-10.1); Chloride 108 mmol/L (98-107); Glucose 100 mg/dL (74-106); Potassium 4.3 mmol/L (3.5-5.1); Sodium 145 mmol/L (136-145); Uric Acid 10.1 mg/dL (3.5-7.2)
[2024-01-09 14:44] LABS: Procalcitonin < 0.1 ng/mL
[2024-01-09] MEDS: Indomethacin 25 MG CAP 50 MG PO (15:18)
== END 2024-01-09 15:38 | disposition home or self-care (01) ==
PROVIDERS: Emergency Provider Nurse Practitioner Family; PCP Nurse Practitioner
DX: M10.9 Gout, unspecified (principal)
CPT/HCPCS: 36415; 80048; 84145; 99284; 73630; 84550; 85025

== ENCOUNTER 2024-12-06 22:13 | Day surgery (SDC) | payer SELFPAY ==
--- NOTE | 2024-12-06 22:15 | DI.CT_ITS ---
Exam(s) CT RENAL COLIC WO EXAM: CT RENAL COLIC WO CLINICAL HISTORY: left flank pain. TECHNIQUE: Imaging Protocol: Axial computed tomography images with coronal and sagittal reformatted images were created and reviewed. COMPARISON: CT CT RENAL COLIC WO from 05/31/2019 FINDINGS: Lung Bases: No acute findings. Liver: Normal density. No measurable mass. Gallbladder and biliary tract: No radiodense calculus. No biliary ductal dilation. Pancreas: No abnormal calcifications or inflammatory process. Spleen: Normal size. Kidneys: There is severe left hydronephrosis secondary to 2 adjacent stones in the distal ureter, measuring 4 and 5 millimeters. There is additional 3 millimeter stone at the lower pole the left kidney. The left kidney is enlarged and shows perinephric stranding. No right-sided calculi are seen. Adrenal glands: No mass is seen. Lymph nodes: Within normal limits. Vasculature: Abdominal aorta non-dilated. Bladder:No stones. The bladder is nearly empty. Circumferential wall thickening. No evidence of mass. Bowel: No obstruction. No bowel wall thickening. Peritoneal cavity: No ascites.No free air. No focal collection. No mesenteric inflammatory response. Reproductive organs: Within normal limits. Bones: Unremarkable for age. Soft Tissues: Within normal limits. IMPRESSION: Severe left hydronephrosis secondary to 2 stones in the distal left ureter. RADIATION DOSE DELIVERED: 906.56mGy.cm Total DLP 906.56mGy.cm Total DLP DATA REPOSITORY: All CT scans at this facility are submitted to the National Radiology Data Registry (NRDR) Dose Index Registry (DIR) with the [employer] (ACR). RADIATION OPTIMIZATION: All CT scans at this facility use at least one of these dose optimization techniques: automated exposure control; mA and/or kV adjustment per patient size (includes targeted exams where dose is matched to clinical indication); or iterative reconstruction.
[2024-12-06 22:17] VITALS: BP 172/101; PULSE 96; RESP 18; TEMP 37.2; O2SAT 97
--- NOTE | 2024-12-06 22:21 | ED.GENADUL_ITS ---
Discharge Plan Disposition Patient Disposition: Admit to [facility] Condition: Stable Discharge Details Clinical Impression: Hydronephrosis with urinary obstruction due to ureteral calculus, Acute UTI Primary Care Provider: Leatha Marsh ED Provider: Reilly Martinez and New Rx's Prescriptions: No Action ibuprofen 200 mg tablet 600 mg PO Q6H PRN Patient Comments: Takes 2-3 tabs (400-600 mg) Q6-8H indomethacin 25 mg capsule 50 mg PO TID PRN (Reason: gout) 5 Days Qty: 90 1RF Rx Instructions: administer with food or milk acetaminophen 325 mg tablet 975 mg PO Q6H PRN Rx Instructions: constipation per [facility] note dated 06/11/19 [facility] HPI General Mode of arrival: ambulatory . Date/Time Provider Initiated Documentation: 12/06/24 22:15 . Limitations to Documentation: no limitations . Information obtained by: patient and RN notes reviewed . HPI Narrative: Patient presents to ED with worsening left flank pain and hematuria, first noticed yesterday morning. Progressively worse throughout today. Nausea when pain intensifies. No fever that he is aware of. Previous history of bilateral stones requiring nephrostomy tube and ureteral stents in the past. History of gout, most recently treated a month ago. Flank pain radiates around to the left lower quadrant but not into the groin or testicle. No chest pain or shortness of breath. Related Data Home Medications ?Medication ?Instructions ?Recorded ?Confirmed acetaminophen 325 mg tablet 975 mg PO Q6H PRN 06/15/19 12/06/24 ibuprofen 200 mg tablet 600 mg PO Q6H PRN 12/14/22 0 12/06/24 indomethacin 25 mg capsule 50 mg (2 x 25 mg) PO TID DC N gout 11/05/24 12/06/24 5 days #90 caps Previous Rx's ?Medication ?Instructions ?Recorded indomethacin 25 mg capsule 50 mg (2 x 25 mg) PO TID DC N gout 11/05/24 5 days #90 caps Allergies Allergy/AdvReac Type Severity Reaction Status Date / Time amoxicillin Allergy rash Verified 12/06/24 22:21 Penicillins Allergy rash Verified 12/06/24 22:21 General Stated Complaint: FlankPain MARIELLA: 3 Exam Narrative Exam Narrative: Const: WDWN male in NAD. VS per triage. HEENT: NC/AT. Normal facial exam. Neck: Supple. Trachea midline. Lungs: Normal respiratory effort. Lungs are clear. Cor: RRR without murmur. Good radial pulses. GI: Soft/ND/NT. Neuro: A+O x 3. Normal speech, mentation, gait. Cranial nerves II - XII grossly intact. No gross motor or sensory deficit. Course Vital Signs Vital signs: Vital Signs Temperature 98.9 F 12/06/24 22:17 Pulse 96 H 12/06/24 22:17 Respiratory Rate 18 12/06/24 22:17 Blood Pressure 172/101 H 12/06/24 22:17 Pulse Oximetry 97 12/06/24 22:17 Temperature 98.9 F 12/06/24 22:17 Temperature Source Tympanic 12/06/24 22:17 Pulse 96 H 12/06/24 22:17 Respiratory Rate 18 12/06/24 22:17 Blood Pressure 172/101 H 12/06/24 22:17 Pulse Oximetry 97 12/06/24 22:17 Oxygen Delivery Method Room Air 12/06/24 22:17 Oxygen Flow Rate 0 12/06/24 22:17 Pain Level 8 12/06/24 22:17 Medical Decision Making Patient presenting to ED with worsening left flank pain and hematuria since yesterday morning. History of previous kidney stones with procedures including nephrostomy tubes and stents. Will place IV and start fluids. Ondansetron, morphine, ketorolac for symptoms. Urinalysis, labs sent and CT scan ordered. 00:30 - Patient's urine is infected, 1 g of ceftriaxone given. His white count is 12.9 with slight increase in his neutrophil count. Electrolytes are normal but creatinine elevated beyond his baseline to 1.4. His CT scan shows severe left hydronephrosis and perinephric stranding, moderate hydroureter and an obstructing distal ureteral stone. His vital signs have remained stable. He is not febrile. His pain is controlled with ketorolac and morphine. I have placed a call to [facility] to discuss with urology regarding potential interventions. 01:15 - Discussed with urology at [facility]. Patient required nephrostomy tube in the past due to staghorn calculus. With distal obstructing calculus should be able to retrieve and stent here. Did not feel the patient would require emergent transfer for intervention overnight. Continue fluids and antibiotics. Discussed with Dr. Fernandez in the morning when he is available. 06:24 - Patient has remained stable overnight. Discussed with Dr. Fernandez this morning. Plan for OR later this morning for stenting. Imaging Data Radiologic Study: Imaging: CT Scan Radiologist's impression: IMPRESSION: 1. Obstructive left ureterolithiasis with moderate left hydroureter, severe left hydronephrosis and severe left perinephric fat stranding. 2. Nonobstructive left nephrolithiasis. 3. Normal appendix. Thank you for allowing us to participate in the care of your patient. Dictated and Authenticated by: Bonita James MD Lab Data Lab results reviewed: Yes I reviewed the patient's lab results. Lab results narrative: see [facility] All Active Problems (Updated 12/07/24 @ 06:26 by Reilly Martinez MD) Acute UTI (Acute) Hydronephrosis with urinary obstruction due to ureteral calculus (Acute) Cystinuria (Acute) Dental infection (Acute) Abnormal blood chemistry (Acute) Globus sensation (Acute) 06/03/19 Dr Cotter , laryngoscopy. f/u in 2 months HUSSAIN (acute kidney injury) (Acute) Pharyngitis (Acute) 06/03/19 Dr Cotter, 2M f/u scheduled Nephrolithiasis (Chronic) 06/24/19- cysto,stent removal (left) [facility] [place] [facility], Catrachito Uriostegui jr, MD Chronic left sacroiliac joint pain (Acute) Left low back pain (Acute) Dental caries (Chronic) Gout (Chronic) Obesity (Chronic) Medical History Tobacco chew use Gout Right Foot Surgical History History of nephrolithotomy with removal of calculi (06/11/19) [facility] s/p b/l PCN placement and removal of rgt stent 07/05-L ureteral stent removal,Dr Uriostegui History of laryngoscopy 06/03/19 Dr Cotter Family History Maternal Grandmother , lung cancer No problems noted. Mother Lung cancer Sister No problems noted. 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 Frequency: 3-4 times per week Seatbelt use: always Working smoke detector in home: Yes Fire extinguisher in home: Yes Carbon monox detector in home: Yes Firearms in home: No Do you feel safe at home: Yes Do you feel safe in your relationship?: Yes
[2024-12-06 22:39] LABS: Glucose Negative (Negative)
[2024-12-06 22:48] LABS: C & S Indicated? Yes; WBC 20-50 HPF (0-5)
[2024-12-06 22:52] LABS: Abs Immature Grans 0.06 10^3/uL (0.0-0.06); HCT 41.5 % (40.0-50.0); HGB 13.4 g/dL (13.5-17.5); Immature Grans % 0.5 %; MCH 27.9 pg (27.0-33.0); MCHC 32.3 % (32.0-36.0); MCV 86 fL (80-95); MPV 8.7 fL (8.0-11.0); Platelet Count 306 10^3/uL (130-400); RBC 4.81 10^6/uL (4.36-5.78); RDW 13.1 % (11.8-14.1); RDW-SD 40.7 fL; WBC 12.88 10^3/uL (4.4-10.8)
[2024-12-06] MEDS: Normal Saline 1,000 ML 1000 ML IV (22:55)
[2024-12-06] MEDS: Ondansetron 4 MG/2 ML VIAL IVP (22:56)
[2024-12-06] MEDS: MORPHine 4 MG/ML SYR IVP (22:56)
[2024-12-06] MEDS: Ketorolac 15 MG/ML VIAL IVP (22:56)
[2024-12-06] MEDS: cefTRIAXone 1 GM/50 ML BAG IVPB (23:05)
[2024-12-06 23:11] LABS: Anion Gap 4.9 mmol/L (3-11); BUN 20 mg/dL (7-18); CO2 30.1 mmol/L (21.0-32.0); Calcium 9.1 mg/dL (8.5-10.1); Chloride 102 mmol/L (98-107); Estimated GFR 65.57 (mL/min/1.73m2); Glucose 132 mg/dL (74-106); Potassium 4.4 mmol/L (3.5-5.1); Sodium 137 mmol/L (136-145)
[2024-12-06 23:34] VITALS: BP 153/99; PULSE 87; RESP 16; O2SAT 93
--- NOTE | 2024-12-06 23:55 | DI.VRAD_ITS ---
PROCEDURE INFORMATION: Exam: CT Abdomen And Pelvis Without Contrast Exam date and time: 12/06/2024 10:48 PM Age: 39 years old Clinical indication: Abdominal pain; Left flank pain TECHNIQUE: Imaging protocol: Computed tomography of the abdomen and pelvis without contrast. COMPARISON: CT RENAL COLIC WO 05/31/2019 10:33 PM FINDINGS: Liver: The liver has a normal appearance. Gallbladder and biliary ducts: The gallbladder is unremarkable. No biliary ductal dilatation. Pancreas: The pancreas demonstrates normal size. No pancreatic ductal dilatation. Spleen: The spleen demonstrates normal size. Adrenal glands: The adrenal glands have a normal appearance. Kidneys and ureters: The right kidney demonstrates normal size. The left kidney is enlarged. There is moderate to severe left hydronephrosis. There is severe left perinephric fat stranding. There is moderate left hydroureter. A 3 mm and an adjacent 4 mm calculus are present within the distal left ureter. The downstream ureter is decompressed. No right hydroureter or ureterolithiasis. No right hydronephrosis. There is a nonobstructing 3 mm calculus in the lower pole of the left kidney. Stomach and bowel: The bowel demonstrates overall normal caliber and wall thickness. Appendix: The appendix is thin walled. Intraperitoneal space: Unremarkable. No free air. No significant fluid collection. Vasculature: The IVC and aorta have a normal appearance. Lymph nodes: No enlarged lymph nodes. Urinary bladder: The bladder is decompressed. There is circumferential bladder wall thickening. No perivesicular fat stranding. Reproductive: Unremarkable as visualized. Bones/joints: Bones have a normal appearance. No acute fracture or suspicious bone lesion. Soft tissues: Unremarkable. IMPRESSION: 1. Obstructive left ureterolithiasis with moderate left hydroureter, severe left hydronephrosis and severe left perinephric fat stranding. 2. Nonobstructive left nephrolithiasis. 3. Normal appendix. Dictated and Authenticated by: Bonita James MD. Orderin Juan Grover MD
[2024-12-07] VITALS (142 sets, daily range): BP systolic 104–181; BP diastolic 52–114; PULSE 63–124; RESP 8–36; TEMP 36.3–36.7; O2SAT 86–98; BMI 36.9
[2024-12-07] MEDS: Lactated Ringers 1,000 ML 125 ML IV ×2 (00:20→12:14)
[2024-12-07] MEDS: MORPHine 4 MG/ML SYR IVP ×4 (01:06→09:59)
[2024-12-07] MEDS: Normal Saline Flush 10 ML SYR IVP ×2 (07:19→12:14)
--- NOTE | 2024-12-07 09:09 | HPE_ITS ---
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 His prior [place] [facility] [place] He had no fever or chills, but his U He presented to the emergency department last evening with renal colic. On CT scan, he was found to have an obstructing left distal ureteral stone. He had no fever or chills, but his urinalysis was concerning for the presence of an infection. He was given IV antibiotics and presents now for stone manipulation. Review of Systems Narrative: No fevers or chills No vision change or dysphasia No diabetes or thyroid dysfunction No shortness of breath, cough or hemoptysis No chest pain or palpitations No nausea, vomiting, hepatitis, ulcers, jaundice No seizures, strokes or peripheral neuropathy No bleeding disorders or anemia Hx gout and arthralgia PFSH All Active Problems (Updated 12/07/24 @ 06:26 by Reilly Martinez MD) Acute UTI (Acute) Hydronephrosis with urinary obstruction due to ureteral calculus (Acute) Cystinuria (Acute) Dental infection (Acute) Abnormal blood chemistry (Acute) Globus sensation (Acute) 06/03/19 Dr Cotter , laryngoscopy. f/u in 2 months HUSSAIN (acute kidney injury) (Acute) Pharyngitis (Acute) 06/03/19 Dr Cotter, 2M f/u scheduled Nephrolithiasis (Chronic) 06/24/19- cysto,stent removal (left) [facility] [place] [facility], Catrachito Uriostegui jr, MD Chronic left sacroiliac joint pain (Acute) Left low back pain (Acute) Dental caries (Chronic) Gout (Chronic) Obesity (Chronic) Medical History Tobacco chew use Gout Right Foot Surgical History History of nephrolithotomy with removal of calculi (06/11/19) [facility] [place]/l PCN placement and removal of rgt stent 07/05-L ureteral stent removal,Dr Uriostegui History of laryngoscopy 06/03/19 Dr Cotter Family History Maternal Grandmother , lung cancer No problems noted. Mother Lung cancer Sister No problems noted. 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 days/4days week. Frequency: 3-4 times per week Seatbelt use: always Working smoke detector in home: Yes Fire extinguisher in home: Yes Carbon monox detector in home: Yes Firearms in home: No Do you feel safe at home: Yes Do you feel safe in your relationship?: Yes Meds Allergies and Home Medications Allergies Allergy/AdvReac Type Severity Reaction Status Date / Time amoxicillin Allergy rash Verified 12/06/24 22:21 Penicillins Allergy rash Verified 12/06/24 22:21 Home Medications ?Medication ?Instructions ?Recorded ?Confirmed ?Type acetaminophen 325 mg tablet 975 mg PO Q6H PRN 06/15/19 12/06/24 History ibuprofen 200 mg tablet 600 mg PO Q6H PRN 12/14/22 0 12/06/24 History indomethacin 25 mg capsule 50 mg (2 x 25 mg) PO TID SD N gout 11/05/24 12/06/24 Rx 5 days #90 caps Exam Const General: cooperative and uncomfortable Resp Effort & Inspection: normal respiratory effort Auscultation: clear to auscultation bilaterally Cardio Rate: regular rate Rhythm: regular rhythm GI Palpation: soft, no guarding and not rigid Neuro General: patient alert, patient awake and patient oriented x3 Results Imaging Imaging Studies: I reviewed his CT scan on the PACS system. He has a left hydronephrosis and hydroureter down to a left distal ureteral stone. There is an additional nonobstructive stone in the left kidney Labs 12/06/24 22:40 12/06/24 22:40 Labs: Laboratory Results - last 24 hr 12/06/24 12/06/24 22:16 22:40 WBC 12.88 H RBC 4.81 Hgb 13.4 L Hct 41.5 MCV 86 MCH 27.9 MCHC 32.3 RDW 13.1 Plt Count 306 MPV 8.7 Immature Gran % 0.5 Neutrophils % 83.3 Lymphocytes % 8.8 Monocytes % 6.4 Eosinophils % 0.8 Basophils % 0.2 Nucleated RBC % 0.0 Absolute Neutrophils 10.73 H Absolute Lymphocytes 1.13 L Absolute Monocytes 0.82 H Absolute Eosinophils 0.10 Absolute Basophils 0.03 Sodium 137 Potassium 4.4 Chloride 102 Carbon Dioxide 30.1 Anion Gap 4.9 BUN 20 H Creatinine 1.4 H Est GFR (CKD-EPI 2020) 65.57 Glucose 132 H Calcium 9.1 Urine Color Yellow Urine Clarity Sl Cloudy Urine pH 7.0 Ur Specific [place] 1.015 Urine Protein Negative Urine Ketones Negative Urine Blood Moderate H Urine Nitrite Negative Urine Bilirubin Negative Urine Urobilinogen 0.2 Ur Leukocyte Esterase Small H Urine RBC 5-10 H Urine WBC 20-50 H Ur Epithelial Cells Negative Urine Crystals Negative Urine Bacteria Rare Urine Casts Negative Urine Mucus Negative Ur Culture Indicated? Yes Urine Glucose Negative Last Vital Signs Temp 37.2 C 12/06/24 22:17 Pulse 115 H 12/07/24 07:30 Resp 23 12/07/24 07:30 BP 147/76 H 12/07/24 06:46 Pulse Ox 92 12/07/24 07:30 PAWSS Have you Been Recently Intoxicated or Drunk Within the Last 30 days?: No Have you Ever Experienced Previous Episodes of Alcohol Withdrawal?: No Have you ever Experienced Withdrawal Seizures?: No Have you ever Experienced Delirium Tremens(DT)s?: No Have you ever undergone Alcohol Rehabilitation Treatment (i.e, inpt ot outpatient treatment programs)?: No Have you ever Experienced Blackouts?: No Have you ever Combined Alcohol with other Downers within the last 90 days?: No Have you ever Combined Alcohol with any other Substance of Abuse during the last 90 days?: No Positive Blood Alcohol level on Presentation? [PCS.BAL]: No Evidence of Increased Autonomic Activity (i.e. HR>120, tremor, sweating, agitation, nausea)?: No Result: 0 Time Spent Time spent with Patient: <40 minutes Time was spent: preparing to see the patient(eg.review tests), referring, communicating with other health childbirth and infant care teacher and counseling the patient
--- NOTE | 2024-12-07 10:26 | ANES.PREOP_ITS ---
General Info Date of Service Date Performed: 12/07/24 Height: 5 ft 9 in Weight: 113.398 kg Body Mass Index (BMI): 36.9 Surgical Procedure: Operation Date: 12/07/24 10:40 Proposed Procedure Side Surgeon p Cystoscopy/Laser/Retrograde/Ureteroscopy/Stent Placement Left Ced Fernandez MD Meds Allergies and Home Medications Allergies Allergy/AdvReac Type Severity Reaction Status Date / Time amoxicillin Allergy rash Verified 12/06/24 22:21 Penicillins Allergy rash Verified 12/06/24 22:21 Home Medication ?Medication ?Instructions ?Recorded acetaminophen 325 mg tablet 975 mg PO Q6H PRN 06/15/19 ibuprofen 200 mg tablet 600 mg PO Q6H PRN 12/14/22 indomethacin 25 mg capsule 50 mg (2 x 25 mg) PO TID MA N gout 11/05/24 5 days #90 caps Current Visit Medications: Current Medications Generic Name Dose Route Start Last Admin Trade Name Freq PRN Reason Stop Dose Admin Ringer's Solution 1,000 mls @ 125 mls/hr 12/06/24 23:45 12/07/24 08:45 IV Infused INFUSION YANETH Infusion IV Miscellaneous Supplies 1 each 12/06/24 22:30 Iv Access IV DIRECTED YANETH Morphine Sulfate 4 mg 12/06/24 23:56 12/07/24 09:59 Morphine 4 Mg/Ml Syr IVP 4 mg Q2H PRN Administration Moderate to Severe Pain Sodium Chloride 0 ml 12/06/24 22:27 12/07/24 07:19 Normal Saline Flush 10 Ml Syr IVP 10 ml PRN PRN Administration Sodium Chloride 0 ml 12/07/24 08:30 Normal Saline Flush 10 Ml Syr IVP BID YANETH Sodium Chloride 0 ml 12/06/24 22:27 Normal Saline 10 Ml Vial IJ DIRECTED PRN PFSH Active Problems Active Problems: Problem Status Onset Code Acute UTI Acute N39.0 Hydronephrosis with urinary obstruction due to ureteral calculus Acute N13.2 Cystinuria Acute E72.01 Dental infection Acute K04.7 Abnormal blood chemistry Acute R79.9 Globus sensation Acute R09.89 HUSSAIN (acute kidney injury) Acute N17.9 Pharyngitis Acute J02.9 Nephrolithiasis Chronic N20.0 Chronic left sacroiliac joint pain Acute M53.3, G89.29 Left low back pain Acute M54.5 Dental caries Chronic K02.9 Gout Chronic M10.9 Obesity Chronic E66.9 Medical History Medical History Tobacco chew use Gout Right Foot Surgical History Surgical History History of nephrolithotomy with removal of calculi (06/11/19) [facility] [place]l PCN placement and removal of rgt stent 07/05-L ureteral stent removal,Dr Uriostegui History of laryngoscopy 06/03/19 Dr Cotter Tobacco Smoking/Tobacco Use Status: Current every day Tobacco Type: smokeless tobacco Smokeless tobacco user: chewing tobacco Alcohol Alcohol Intake: current Alcohol intake frequency: holidays/special occasions only Substance Use Substance use: Never Substance use type: does not use Vital Signs and Lab Results Vital Signs Most Recent Vital Signs in EMR: Most Recent Vital Signs Temp Pulse Resp BP Pulse Ox 37.2 C 109 H 17 104/69 90 L 12/06/24 22:17 12/07/24 10:10 12/07/24 10:10 12/07/24 10:02 12/07/24 10:10 Lab Results 12/06/24 22:40 12/06/24 22:40 Complete Blood Count: 2 WBC, (4.4-10.8) 12.88 10^3/uL H 12/06/24, 22:40 RBC, (4.36-5.78) 4.81 10^6/uL 12/06/24, 22:40 Hgb, (13.5-17.5) 13.4 g/dL L 12/06/24, 22:40 Hct, (40.0-50.0) 41.5 % 12/06/24, 22:40 Plt Count, (130-400) 306 10^3/uL 12/06/24, 22:40 Complete Metabolic Panel: 2 Sodium, (136-145) 137 mmol/L 12/06/24, 22:40 Potassium, (3.5-5.1) 4.4 mmol/L 12/06/24, 22:40 Chloride, (98-107) 102 mmol/L 12/06/24, 22:40 Carbon Dioxide, (21.0-32.0) 30.1 mmol/L 12/06/24, 22 :40 BUN, (7-18) 20 mg/dL H 12/06/24, 22:40 Creatinine, (0.70-1.30) 1.4 mg/dL H 12/06/24, 22:40 Est GFR (CKD-EPI 2020), (mL/min/1.73m2) 65.57 12/06/24, 22:40 Calcium, (8.5-10.1) 9.1 mg/dL 12/06/24, 22:40 Glucose, (74-106) 132 mg/dL H 12/06/24, 22:40 Anesthesia Assessment and Plan Anesthesia History Personal History: No History of Anesthesia Complications Family History: No Family History of Anesthesia Complications Exercise Tolerance Exercise Tolerance: Metabolic Equivalents>4 Pertinent Negatives Pertinent Negatives: No Symptoms of GERD Cardiac & Pulmonary Exam Cardiac Exam: Normal S1/S2 Heart Sounds Pulmonary Exam: Clear Bilateral Breath Sounds Implantable Cardiac Device Does patient have a Pacemaker or an ICD?: No Airway Exam Known Difficult Airway: No Mallampati Class: 2 Mouth Opening: Normal (> 3cm) Thyromental Distance: Greater than 3 cm Neck Range of Motion: Full ROM Neck Circumference: Thick Teeth Condition: Normal Dentition and Loose or Chipped (Back - both sides) ASA Classification ASA Score: ASA 2 Emergency Case?: No NPO Status NPO Status: NPO Clears >2 hours, Solids >8 hours Anesthesia Plan Resuscitation Status: Full Code Anesthesia Technique: General Anesthesia Airway Planned: LMA Monitors Used: Standard Monitors
[2024-12-07] MEDS: HYDROmorphone 2 MG/ML SYR IVP (12:36)
[2024-12-07] MEDS: Lidocaine 2% Jelly 6 ML SYR (14:16)
[2024-12-07] MEDS: Omnipaque 300 MG/ML 50 ML BTL (14:24)
--- NOTE | 2024-12-07 14:35 | W.PM.OP ---
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 He has had bilateral kidney stones. He required a left-sided percutaneous nephro lithotomy about 5 years ago. He presented to the emergency department with the left-sided flank pain. He was found to have left distal ureteral stones causing hydronephrosis and hydroureter. He presents now for ureteroscopy. Findings: Narrowing in the left ureter but no stones visible at site that corresponds to the CT abnormality Procedure Description: The patient was given IV antibiotics and brought to the operating room on 12/07/2024. After successful induction of general anesthesia, he was placed in the dorsal lithotomy position. His genitalia was prepped and draped. 2% Xylocaine jelly was instilled into the urethra to act as a local anesthetic. The 22 Liberian rigid cystoscope was passed through the urethra into the bladder. The urethra and bladder were inspected with the 30 degree lens. The pendulous, bulbar and membranous urethra all appeared normal with no strictures. The prostatic urethra showed no significant lateral lobe enlargement or median lobe enlargement. The bladder neck was entered and the bladder mucosa was inspected. No stones were seen within the lumen of the bladder. Both ureteral orifices were visualized and the left orifice was a bit more edematous than the right. The left orifice was cannulated with a 5 Liberian access catheter and a retrograde pyelogram was obtained by injecting Omnipaque through the access catheter under fluoroscopic guidance. In the left distal ureter, there was a very discrete narrowing approximately 2 cm above the ureterovesical junction. I did not see any filling defects. I then passed a guidewire through the lumen of the catheter and the catheter was removed leaving the wire in place. A hydronephrotic drip was found. I then removed the cystoscope and passed a semirigid ureteroscope through the urethra and into the bladder. I maneuvered the scope into the left ureteral orifice. We identified a narrowing in the distal ureter that corresponded to the stone location based on the CT scan. I did not see any stones at that location however. We then removed the ureteroscope and passed a 6 Liberian variable length stent over the guidewire. We positioned the stent with the proximal and curled in the renal pelvis and the distal end curled in the bladder. The patient tolerated this procedure well with no complications. Date of Procedure: 12/07/24
--- NOTE | 2024-12-07 14:37 | PDOC.DSDIS_ITS ---
Date of service: 12/07/24 Discharge Plan Disposition Patient Disposition: Home Condition: Stable Discharge Details Reason For Visit: flank pain Attending Provider: Wojciech Ernst Primary Care Provider: Leatha Marsh Home Meds and New Rx's Prescriptions: New tramadol 50 mg tablet 50 mg PO Q6H PRN (Reason: pain) Qty: 12 0RF ciprofloxacin HCl [Cipro] 500 mg tablet 500 mg PO BID Qty: 10 0RF No Action ibuprofen 200 mg tablet 600 mg PO Q6H PRN Patient Comments: Takes 2-3 tabs (400-600 mg) Q6-8H indomethacin 25 mg capsule 50 mg PO TID PRN (Reason: gout) 5 Days Qty: 90 1RF Rx Instructions: administer with food or milk acetaminophen 325 mg tablet 975 mg PO Q6H PRN Rx Instructions: constipation per [facility] [place] dated 06/11/19 [facility] Discharge Instructions Additional Instructions: no need to strain urine follow up for cystoscopy and stent removal in about 2 weeks Stand Alone Forms: Anesthesia Discharge Inst., [facility]mar[facility] ([facility]) Activity:: Activity as Tolerated Shower/Bathe:: 24 hours Diet:: As Tolerated Discharge Orders Discharge Orders: Discharge Order (Routine); Ordered 12/07/24 Ordered By: Ced Fernandez DS: Diagnosis Discharge Diagnosis (1) Hydronephrosis with urinary obstruction due to ureteral calculus: Status: Acute
--- NOTE | 2024-12-07 14:39 | DI.RAD_ITS ---
Exam(s) XR RETROGRADE IN OR EXAM: XR RETROGRADE IN OR CLINICAL HISTORY: obstructing left distal ureteral stone. TECHNIQUE: Fluoroscopy was provided for the referring physician for guidance with performing retrograde procedure. COMPARISON: CT CT RENAL COLIC WO from 12/06/2024 FINDINGS: Please see procedure note for details. Fluoro time: 13 seconds RADIATION DOSE DELIVERED: matt Brumfield=6.6 mGy
--- NOTE | 2024-12-07 14:57 | W.ANESPOSTOP ---
Postoperative Evaluation Date, Time and Location Date Performed: 12/07/24 Time Performed: 14:57 Patient Location: PACU Vital Signs Most Recent Imported Vital Signs: Most Recent Vital Signs Temp Pulse Resp BP Pulse Ox 36.4 C L 111 H 13 119/67 93 12/07/24 14:45 12/07/24 14:50 12/07/24 14:50 12/07/24 14:50 12/07/24 14:50 Pain Score Most Recent Pain Score: Most Recent Pain Score Pain Level [Generalized] 8 12/07/24 12:38 Pain Level 0 12/07/24 14:45 Assessment Mental Status: Awake (Alert & Oriented to Patient Baseline) Airway and Respiratory Function: Patent airway with normal (patient baseline) respiratory exam Cardiovascular Function: Hemodynamically Stable Hydration Status: Adequately Hydrated Nausea & Vomiting: No Nausea or Vomiting Pain: Pt. Denies Any Pain Peripheral Nerve Block: Patient did not receive a nerve block
[2024-12-07] MEDS: Phenazopyridine 200 MG TAB PO (15:47)
== END 2024-12-07 15:57 | disposition home or self-care (01) ==
LOC: ER 12-07 07:02 → SUR 12-07 10:41
PROVIDERS: Emergency Provider Emergency Medicine; PCP Nurse Practitioner; Visit Provider Urology
PROC: (CPT 52332; principal; 2024-12-07 10:30)
DX: N13.2 Hydronephrosis with renal and ureteral calculous obstruction (principal)
CPT/HCPCS: 52332; 80048; 74176; 74420; 81003; 81015; 85025; 87086; J0690; J0696; J1100; J1171; J1885; J2003; J2270; J2405; J2704; J3010; Q9967

== ENCOUNTER 2024-12-22 19:41 | Observation (INO) | payer SELFPAY ==
[2024-12-22 19:43] VITALS: BP 135/69; PULSE 128; RESP 18; TEMP 36.1; O2SAT 95
[2024-12-22 19:49] VITALS: BP 135/69; PULSE 128; RESP 18; TEMP 36.1; O2SAT 95
--- NOTE | 2024-12-22 19:57 | ED.GENADUL_ITS ---
Discharge Plan Disposition Patient Disposition: Admit to [facility] Condition: Stable Discharge Details Clinical Impression: Acute pyelonephritis Primary Care Provider: Leatha Marsh ED Provider: Warren Wang Home Meds and New Rx's Prescriptions: No Action ibuprofen 200 mg tablet 600 mg PO Q6H PRN Patient Comments: Takes 2-3 tabs (400-600 mg) Q6-8H indomethacin 25 mg capsule 50 mg PO TID PRN (Reason: gout) 5 Days Qty: 90 1RF Rx Instructions: administer with food or milk potassium citrate [Urocit-K 10] 10 mEq (1,080 mg) tablet extended release 1,080 mg PO DAILY Qty: 90 3RF acetaminophen 325 mg tablet 975 mg PO Q6H PRN Rx Instructions: [place] [facility] [place] [facility] [place] General Date/Time Provider Initiated Documentation: 12/22/24 19:41 . HPI Narrative: 39 year-old male presents to ED today by POV/ambulating with his spouse with a chief complaint of feels feverish, dizzy, nauseous with onset noted today- patient recently had L renal stent placed 2 weeks ago, removed yesterday. Quality described as feels like he's burning up, generalized abdominal pain, and some coughing started recently, no radiation to syncope, chest pain, hemoptysis, hematuria, urinary retention, testicular pain, focal abdominal pain, shortness of breath. Severity is described as moderate. Palliating factors include hasn't taken APAP/NSAIDs today. Provoking factors include he did not finish his initially prescribed antibiotics for his stent placement- took one today before coming in, had 3-4 left when he stopped taking them. Events leading up to the incident/Associated Symptoms: Patient followed by Dr. Fernandez. Patient not anticoagulated. Related Data Home Medications ?Medication ?Instructions ?Recorded ?Confirmed acetaminophen 325 mg tablet 975 mg PO Q6H PRN 06/15/19 12/22/24 ibuprofen 200 mg tablet 600 mg PO Q6H PRN 12/14/22 1 indomethacin 25 mg capsule 50 mg (2 x 25 mg) PO TID SD N gout 11/05/24 12/22/24 5 days #90 caps potassium citrate 10 mEq (1,080 1,080 mg PO DAILY #90 tabs 12/21/24 12/22/24 mg) tablet,extended release (Urocit-K 10) Previous Rx's ?Medication ?Instructions ?Recorded indomethacin 25 mg capsule 50 mg (2 x 25 mg) PO TID SD N gout 11/05/24 5 days #90 caps potassium citrate 10 mEq (1,080 1,080 mg PO DAILY #90 tabs 12/21/24 mg) tablet,extended release (Urocit-K 10) Allergies Allergy/AdvReac Type Severity Reaction Status Date / Time amoxicillin Allergy rash Verified 12/22/24 19:47 Penicillins Allergy rash Verified 12/22/24 19:47 General Stated Complaint: Nausea/Vomit/Diar MARIELLA: 3 Review of Systems All systems reviewed & are unremarkable except as noted in HPI and below Exam Narrative Exam Narrative: GENERAL APPEARANCE: Well-nourished, toxic, awake and alert, atraumatic, moderate acute distress. SKIN: Warm, pink, diaphoretic, intact, without rashes/lesions/ulcerations. HEAD: Normocephalic, atraumatic, normal hair distribution for gender/age. EYES: Normal conjunctiva, no exudates on lids/lashes. ENT: Nares patent, no circumoral cyanosis, no facial swelling NECK: Supple, trachea midline, painless cervical ROM. LUNGS/CHEST: Lungs CTA bilaterally- no rhonchi/rales/wheezes diffusely, labored respirations, normal A/P diameter, symmetrical expansion, no chest wall deformity HEART (CV/PV): Regular rate and rhythm without murmur, no peripheral edema, no JVD. ABDOMEN: Soft, non-distended, no guarding, no focal tenderness, L sided CVA tenderness to percussion MSK: Normal ROM, no swelling/deformity to bilateral UEs or LEs, moving all extremities without weakness, no cyanosis, spine midline without tenderness, normal curvature. NEURO: Mental Status AAOx4 - alert to person, place, time, events No facial droop, no forehead involvement. Motor: No focal weakness - strength 5/5 in bilateral UEs and LEs, proximal and distal, symmetric. Sensory: sensation intact to light touch globally. Gait normal: patient ambulated without ataxia into ED room. PSYCH: euthymic, cooperative, pleasant, appropriate speech Course Vital Signs Vital signs: Vital Signs Temperature 36.1 C L 12/22/24 19:43 Pulse 128 H 12/22/24 19:43 Respiratory Rate 18 12/22/24 19:43 Blood Pressure 135/69 12/22/24 19:43 Pulse Oximetry 95 12/22/24 19:43 Temperature 36.1 C L 12/22/24 19:49 Temperature Source Temporal Artery Scan 12/22/24 19:49 Pulse 128 H 12/22/24 19:49 Respiratory Rate 18 12/22/24 19:49 Blood Pressure 135/69 12/22/24 19:49 Blood Pressure Position Sitting 12/22/24 19:49 Pulse Oximetry 95 12/22/24 19:49 Oxygen Delivery Method Room Air 12/22/24 19:49 Oxygen Flow Rate 0 12/22/24 19:49 Pain Level 0 12/22/24 19:49 Medical Decision Making This dictation utilizes [id number] dictation software and may contain unedited grammatical errors. 39 year-old male presents to ED today by POV/ambulating with his spouse with a chief complaint of feels feverish, dizzy, nauseous with onset noted today- patient recently had L renal stent placed 2 weeks ago, removed yesterday. Quality described as feels like he's burning up, generalized abdominal pain, and some coughing started recently, no radiation to syncope, chest pain, hemoptysis, hematuria, urinary retention, testicular pain, focal abdominal pain, shortness of breath. Severity is described as moderate. Palliating factors include hasn't taken APAP/NSAIDs today. Provoking factors include he did not finish his initially prescribed antibiotics for his stent placement- took one today before coming in, had 3-4 left when he stopped taking them. Events leading up to the incident/Associated Symptoms: Patient followed by Dr. Fernandez. Patients' medical history: Gout, history of renal stones, UTI. Family and social history: Noncontributory. Pertinent exam findings / vital signs include diaphoretic, toxic appearance, no focal abdominal tenderness, tachycardia without murmur, lungs CTA, appears toxic and diaphoretic. Differential / pathologies of concern include UTI, pneumonia, pyelonephritis, on passed ureteral stone, sepsis, post-procedural infection Diagnostic studies of: - CBC, CMP, lipase, magnesium, UA, blood culture, lactate, CT renal colic without, XR chest. - CBC shows leukocytosis of 14.29 - Lactate 1.9 - CMP shows creatinine 1.4 with elevated BUN to 22 likely in setting of dehydration - Magnesium 1.4, replating IV - Lipase negative - UA shows moderate leuk esterase, greater than 50 WBCs on micro likely in the setting of partially treated UTI from his initial incident - Blood cultures pending - XR Chest shows no acute pathology - CT renal colic shows perinephritic fat stranding Interventions of: - 1 L IVF NS, 1 g IV Tylenol, 15 mg IV Toradol. - 400mg IV cipro - Consulted Dr. Vázquez for admission for IV antibiotics overnight and consult with Urology qAM prior to discharge with patients toxic presentation on arrival ED Course/Assessment/Plan: 39-year-old male has a toxic presentation with left ureteral stent removal performed yesterday by Dr. Fernandez, he had stent placed 2 weeks ago due to infected kidney stone. He was on Cipro and his urine culture was pansensitive, he presents with tachycardia to 128 and he appears diaphoretic, his lactate is just under 2.0 at 1.9, leukocytosis to 14.3 with a UA showing greater than [address] showing perinephritic and periureteral fat stranding as well as severely thickened bladder wall, I plan to keep him on IV antibiotics for urology consult tomorrow by either Dr. Fernandez or Macy Alicea PA-C. Dr. Vázquez accepted @ 2146. Findings not consistent with obstructive uropathy. Disposition of Acute Pyelonephritis. Patient verbalized understanding of the plan and return to ED criteria and engaged in shared decision making. Medical Records Medical records reviewed: Yes I reviewed the patient's medical records. Imaging Data Radiologic Study: Attestation: I personally reviewed and interpreted this imaging study as follows: Imaging: X-Ray Radiologist's impression: Exam: XR Chest Exam date and time: 12/22/2024 8:25 PM Age: 39 years old Clinical indication: Cough and fever; Cough, fever TECHNIQUE: Imaging protocol: Radiologic exam of the chest. Views: 2 views. COMPARISON: CT RENAL COLIC WO 12/22/2024 8:10 PM FINDINGS: Lungs: The lungs are clear. No consolidative radiopacities. Pleural spaces: No pleural effusion. No pneumothorax. Heart/Mediastinum: The heart is normal size. Bones/joints: Unremarkable. IMPRESSION: No acute cardiopulmonary findings. Dictated and Authenticated by: Bonita James MD. EXAM: XR CHEST 2V PA LATERAL CLINICAL HISTORY: cough, post-stent placement kidney last week. TECHNIQUE: 2D digital imaging was performed. COMPARISON: No exams were available for comparison FINDINGS: 2 views: Heart size is normal. The mediastinum is not widened. Left lung is clear. There is platelike atelectasis in the right parahilar region. No confluent infiltrates. No pleural effusions. No fractures. IMPRESSION: There is platelike atelectasis in the right parahilar region. Radiologic Study #2: Attestation: I personally reviewed and interpreted this imaging study as follows: Imaging: CT Scan Radiologist's impression: Exam: CT Abdomen And Pelvis Without Contrast Exam date and time: 12/22/2024 8:10 PM Age: 39 years old Clinical indication: Fever; Prior surgery; Surgery date: Post-operative (0-2 days); Surgery type: Stent removed yesterday TECHNIQUE: Imaging protocol: Computed tomography of the abdomen and pelvis without contrast. Radiation optimization: All CT scans at this facility use at least one of these dose optimization techniques: automated exposure control; mA and/or kV adjustment per patient size (includes targeted exams where dose is matched to clinical indication); or iterative reconstruction. COMPARISON: CT RENAL COLIC WO 12/06/2024 10:48 PM FINDINGS: Lungs: Lung bases are clear. Liver: The liver is diffusely hypodense suggesting fatty infiltration. Gallbladder and biliary ducts: The gallbladder is unremarkable. No biliary ductal dilatation. Pancreas: The pancreas demonstrates normal size. No pancreatic ductal dilatation. Spleen: The spleen demonstrates normal size. Adrenal glands: The adrenal glands have a normal appearance. Kidneys and ureters: The right kidney demonstrates normal size. The left kidney is moderately enlarged. There is moderate left perinephric fat stranding. A nonobstructing 3 mm calculus is present in the lower pole of the left kidney. No hydronephrosis. No hydroureter or ureterolithiasis. There is moderate left periureteral fat stranding. Stomach and bowel: The bowel demonstrates overall normal caliber and wall thickness. Appendix: The appendix is thin walled. Intraperitoneal space: Unremarkable. No free air. No significant fluid collection. Vasculature: The IVC and aorta have a normal appearance. Lymph nodes: No enlarged lymph nodes. Urinary bladder: The bladder is partially fluid filled. There is circumferential wall thickening of the bladder unchanged from the CT dated 12/06/2024. No perivesicular fat stranding. Findings suggest neurogenic bladder. Reproductive: Unremarkable as visualized. Bones/joints: Bones have a normal appearance. No acute fracture or suspicious bone lesion. Soft tissues: There is a small fat containing left inguinal hernia. IMPRESSION: 1. Moderately enlarged left kidney with perinephric fat stranding and periureteral fat stranding. No recurrent hydronephrosis. Acute pyelonephritis can not be excluded in the absence of intravenous contrast. Given the presence of fat stranding, differential considerations include acute pyelonephritis. 2. No other acute intra-abdominal findings. Normal appendix. 3. Hepatic steatosis. Dictated and Authenticated by: Bonita James MD. EXAM: CT RENAL COLIC WO s CLINICAL HISTORY: recent stent removal, fever. TECHNIQUE: Imaging Protocol: Axial computed tomography images with coronal and sagittal reformatted images were created and reviewed CONTRAST MATERIAL: Intravenous: none Oral: None COMPARISON: CT CT RENAL COLIC WO from 12/06/2024 FINDINGS: VISUALIZED LUNG BASES: No nodules nor pleural effusions evident. ABDOMEN: There is no ascites. LIVER: Liver is again noted to be hypodense implying steatosis. There no discrete focal hepatic lesions identified. No dilated intrahepatic ducts. GALLBLADDER/BILIARY: No obvious gallbladder pathology. CBD is not dilated. PANCREAS: No evidence of pancreatic mass nor dilatation of the pancreatic duct. SPLEEN: Spleen is not enlarged. No obvious intrasplenic lesions. ADRENALS: There are no significant adrenal masses. KIDNEYS:Right kidney unremarkable. There is again noted in the 4 millimeter calculus in the lower pole calyx of the left kidney. The previously present left-sided hydronephrosis has diminished. The previously present to obstructing calculi in the lower left ureter are no longer seen and there also not present in the urinary bladder. There is some streaking around the left ureter evident consistent with recent passage. There is no urinoma. There is uniform thickening of the urinary bladder again noted. There is no gas in the urinary bladder wall. There are no radiopaque calculi at the ureterovesical junctions.. ABDOMINAL AORTA: Abdominal aorta is not enlarged. LYMPH NODES: There is no retroperitoneal nor paraaortic adenopathy. ABDOMINAL WALL: No evidence of significant anterior abdominal wall nor inguinal hernia. GI: There is no evidence of bowel obstruction, free air, nor abscess. PELVIS: LYMPH NODES: There is no intrapelvic nor inguinal adenopathy. GI: No evidence of appendicitis.No evidence of sigmoid diverticulitis. URINARY BLADDER: Uniformly thickened bladder wall. REPRODUCTIVE: Prostate not enlarged. Seminal vesicles unremarkable. OSSEOUS: No significant osseous lesions. No fractures. IMPRESSION: 1. Compared to the CT scan of 12/06/2024 there has been resolution of the left- sided hydronephrosis/left hydroureter. The previously present 2 radiopaque calculi in the lower left ureter have passed and are also not seen in the urinary bladder. There is residual streaking around the left kidney and ureter. Cannot exclude urinary tract infection 2. There is again noted diffuse uniform thickening of the urinary bladder wall. May indicate chronic cystitis. There is no air-gas in the bladder wall nor within the bladder lumen. There are no clots in the bladder lumen. 3. There is a single remaining presently nonobstructive 4 millimeter calculus in lower pole the left kidney, unchanged. There are no calculi seen in the opposite-right kidney. Lab Data Lab results reviewed: Yes I reviewed the patient's lab results. Labs: 12/22/24 20:35 Blood Blood Culture - Pending 12/22/24 20:16 Blood Blood Culture - Pending 12/22/24 19:48 Urine - Reflex from Ua Urine Culture - Pending Laboratory Tests Range/Units 12/22/24 19:48 WBC (4.4-10.8) 10^3/uL 14.29 H RBC (4.36-5.78) 10^6/uL 5.00 Hgb (13.5-17.5) g/dL 13.7 Hct (40.0-50.0) % 42.6 MCV (80-95) fL 85 MCH (27.0-33.0) pg 27.4 MCHC (32.0-36.0) % 32.2 RDW (11.8-14.1) % 13.3 Plt Count (130-400) 10^3/uL 308 MPV (8.0-11.0) fL 8.8 Immature Gran % % 0.5 Neutrophils % % 84.3 Lymphocytes % % 7.5 Monocytes % % 7.5 Eosinophils % % 0.1 Basophils % % 0.1 Nucleated RBC % (0.0-0.3) % 0.0 Absolute Neutrophils (1.2-6.7) 10^3/uL 12.05 H Absolute Lymphocytes (1.2-3.4) 10^3/uL 1.07 L Absolute Monocytes (0.1-0.8) 10^3/uL 1.07 H Absolute Eosinophils (0.0-0.7) 10^3/uL 0.01 Absolute Basophils (0.0-0.2) 10^3/uL 0.01 VBG Lactate (<or=2.0) mmol/L 1.9 Sodium (136-145) mmol/L 136 Potassium (3.5-5.1) mmol/L 3.9 Chloride (98-107) mmol/L 99 Carbon Dioxide (21.0-32.0) mmol/L 28.0 Anion Gap (3-11) mmol/L 9.0 BUN (7-18) mg/dL 22 H Creatinine (0.70-1.30) mg/dL 1.4 H Est GFR (CKD-EPI 2020) (mL/min/1.73m2) 65.57 Glucose (74-106) mg/dL 109 H Calcium (8.5-10.1) mg/dL 9.1 Magnesium (1.8-2.4) mg/dL 1.4 L Total Bilirubin (0.2-1.0) mg/dL 0.6 AST (15-37) U/L 23 ALT (16-63) U/L 30 Alkaline Phosphatase (46-116) U/L 111 Total Protein (6.4-8.2) g/dL 8.2 Albumin (3.4-5.0) g/dL 3.6 Lipase (<78) U/L 27 Urine Color (Yellow) Yellow Urine Clarity (Clear) Clear Urine pH (5-8) 6.0 Ur Specific [place] (1.005-1.025) 1.015 Urine Protein (Neg-Trace) mg/dL 30 H Urine Ketones (Negative) mg/dL Negative Urine Blood (Negative) Moderate H Urine Nitrite (Negative) Negative Urine Bilirubin (Negative) Negative Urine Urobilinogen (Up to 0.2) mg/dL 0.2 Ur Leukocyte Esterase (Negative) Moderate H Urine RBC (0-2) HPF 20-50 H Urine WBC (0-5) HPF >50 H Ur Epithelial Cells (Negative) HPF Rare Urine Crystals (Negative) HPF Negative Urine Bacteria (Negative) HPF Moderate Urine Casts (Negative) LPF Negative Urine Mucus (Negative) Trace Ur Culture Indicated? Yes Urine Glucose (Negative) mg/dL Negative PFSH All Active Problems (Updated 12/22/24 @ 21:31 by CLAUDIA Pryor) Acute pyelonephritis (Acute) Acute UTI (Acute) Hydronephrosis with urinary obstruction due to ureteral calculus (Acute) Cystinuria (Acute) Dental infection (Acute) Abnormal blood chemistry (Acute) Globus sensation (Acute) 06/03/19 Dr Cotter , laryngoscopy. f/u in 2 months HUSSAIN (acute kidney injury) (Acute) Pharyngitis (Acute) 06/03/19 Dr Cotter, 2M f/u scheduled Nephrolithiasis (Chronic) 06/24/19- cysto,stent removal (left) [facility] [place] [facility], Catrachito Uriostegui jr, MD Chronic left sacroiliac joint pain (Acute) Left low back pain (Acute) Dental caries (Chronic) Gout (Chronic) Obesity (Chronic) Medical History Tobacco chew use Gout Right Foot Surgical History History of nephrolith[place] with [place] of calculi [place]06[place]11/19[place] [facility] [place] and removal of rgt stent 07/05-L ureteral stent removal,Dr Uriostegui History of laryngoscopy 06/03/19 Dr Cotter Family History Maternal Grandmother , lung cancer No problems noted. Mother Lung cancer Sister No problems noted. 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 Frequency: 3-4 times per week Seatbelt use: always Working smoke detector in home: Yes Fire extinguisher in home: Yes Carbon monox detector in home: Yes Firearms in home: No Do you feel safe at home: Yes Do you feel safe in your relationship?: Yes
[2024-12-22 20:00] LABS: Glucose Negative (Negative)
--- NOTE | 2024-12-22 20:00 | DI.RAD_ITS ---
Exam(s) XR CHEST 2V PA LATERAL EXAM: XR CHEST 2V PA LATERAL CLINICAL HISTORY: cough, post-stent placement kidney last week. TECHNIQUE: 2D digital imaging was performed. COMPARISON: No exams were available for comparison FINDINGS: 2 views: Heart size is normal. The mediastinum is not widened. Left lung is clear. There is platelike atelectasis in the right parahilar region. No confluent infiltrates. No pleural effusions. No fractures. IMPRESSION: There is platelike atelectasis in the right parahilar region. DATA REPOSITORY: RADIATION DOSE DELIVERED:
--- NOTE | 2024-12-22 20:00 | DI.CT_ITS ---
Exam(s) CT RENAL COLIC WO EXAM: CT RENAL COLIC WO s CLINICAL HISTORY: recent stent removal, fever. TECHNIQUE: Imaging Protocol: Axial computed tomography images with coronal and sagittal reformatted images were created and reviewed CONTRAST MATERIAL: Intravenous: none Oral: None COMPARISON: CT CT RENAL COLIC WO from 12/06/2024 FINDINGS: VISUALIZED LUNG BASES: No nodules nor pleural effusions evident. ABDOMEN: There is no ascites. LIVER: Liver is again noted to be hypodense implying steatosis. There no discrete focal hepatic lesions identified. No dilated intrahepatic ducts. GALLBLADDER/BILIARY: No obvious gallbladder pathology. CBD is not dilated. PANCREAS: No evidence of pancreatic mass nor dilatation of the pancreatic duct. SPLEEN: Spleen is not enlarged. No obvious intrasplenic lesions. ADRENALS: There are no significant adrenal masses. KIDNEYS:Right kidney unremarkable. There is again noted in the 4 millimeter calculus in the lower pole calyx of the left kidney. The previously present left-sided hydronephrosis has diminished. The previously present to obstructing calculi in the lower left ureter are no longer seen and there also not present in the urinary bladder. There is some streaking around the left ureter evident consistent with recent passage. There is no urinoma. There is uniform thickening of the urinary bladder again noted. There is no gas in the urinary bladder wall. There are no radiopaque calculi at the ureterovesical junctions.. ABDOMINAL AORTA: Abdominal aorta is not enlarged. LYMPH NODES: There is no retroperitoneal nor paraaortic adenopathy. ABDOMINAL WALL: No evidence of significant anterior abdominal wall nor inguinal hernia. GI: There is no evidence of bowel obstruction, free air, nor abscess. PELVIS: LYMPH NODES: There is no intrapelvic nor inguinal adenopathy. GI: No evidence of appendicitis.No evidence of sigmoid diverticulitis. URINARY BLADDER: Uniformly thickened bladder wall. REPRODUCTIVE: Prostate not enlarged. Seminal vesicles unremarkable. OSSEOUS: No significant osseous lesions. No fractures. IMPRESSION: 1. Compared to the CT scan of 12/06/2024 there has been resolution of the left- sided hydronephrosis/left hydroureter. The previously present 2 radiopaque calculi in the lower left ureter have passed and are also not seen in the urinary bladder. There is residual streaking around the left kidney and ureter. Cannot exclude urinary tract infection 2. There is again noted diffuse uniform thickening of the urinary bladder wall. May indicate chronic cystitis. There is no air-gas in the bladder wall nor within the bladder lumen. There are no clots in the bladder lumen. 3. There is a single remaining presently nonobstructive 4 millimeter calculus in lower pole the left kidney, unchanged. There are no calculi seen in the opposite-right kidney. RADIATION DOSE DELIVERED: 909.39mGy.cm Total DLP DATA REPOSITORY: All CT scans at this facility are submitted to the National Radiology Data Registry (NRDR) Dose Index Registry (DIR) with the [employer] (ACR). RADIATION OPTIMIZATION: All CT scans at this facility use at least one of these dose optimization techniques: automated exposure control; mA and/or kV adjustment per patient size (includes targeted exams where dose is matched to clinical indication); or iterative reconstruction.
[2024-12-22 20:09] LABS: C & S Indicated? Yes; RBC 20-50 HPF (0-2); WBC >50 HPF (0-5)
[2024-12-22 20:12] LABS: Abs Immature Grans 0.07 10^3/uL (0.0-0.06); HCT 42.6 % (40.0-50.0); HGB 13.7 g/dL (13.5-17.5); Immature Grans % 0.5 %; MCH 27.4 pg (27.0-33.0); MCHC 32.2 % (32.0-36.0); MCV 85 fL (80-95); MPV 8.8 fL (8.0-11.0); Platelet Count 308 10^3/uL (130-400); RBC 5.00 10^6/uL (4.36-5.78); RDW 13.3 % (11.8-14.1); RDW-SD 41.0 fL; WBC 14.29 10^3/uL (4.4-10.8)
[2024-12-22] MEDS: ACETAMINOPHEN 1,000 MG/100 ML BAG 400 MG IVPB (20:24)
[2024-12-22] MEDS: Normal Saline 1,000 ML 1000 ML IV (20:24)
[2024-12-22] MEDS: Ketorolac 15 MG/ML VIAL IVP (20:24)
[2024-12-22] MEDS: CIPROFLOXACIN 400 MG/200 ML BAG 200 MG IVPB (20:25)
[2024-12-22 20:27] LABS: ALT 30 U/L (16-63); AST 23 U/L (15-37); Albumin 3.6 g/dL (3.4-5.0); Alkaline Phosphatase 111 U/L (46-116); Anion Gap 9.0 mmol/L (3-11); BUN 22 mg/dL (7-18); Bilirubin, Total 0.6 mg/dL (0.2-1.0); CO2 28.0 mmol/L (21.0-32.0); Calcium 9.1 mg/dL (8.5-10.1); Chloride 99 mmol/L (98-107); Estimated GFR 65.57 (mL/min/1.73m2); Glucose 109 mg/dL (74-106); Lipase 27 U/L (<78); Magnesium 1.4 mg/dL (1.8-2.4); Potassium 3.9 mmol/L (3.5-5.1); Sodium 136 mmol/L (136-145); Total Protein 8.2 g/dL (6.4-8.2)
--- NOTE | 2024-12-22 21:19 | DI.VRAD_ITS ---
PROCEDURE INFORMATION: Exam: CT Abdomen And Pelvis Without Contrast Exam date and time: 12/22/2024 8:10 PM Age: 39 years old Clinical indication: Fever; Prior surgery; Surgery date: Post-operative (0-2 days); Surgery type: Stent removed yesterday TECHNIQUE: Imaging protocol: Computed tomography of the abdomen and pelvis without contrast. Radiation optimization: All CT scans at this facility use at least one of these dose optimization techniques: automated exposure control; mA and/or kV adjustment per patient size (includes targeted exams where dose is matched to clinical indication); or iterative reconstruction. COMPARISON: CT RENAL COLIC WO 12/06/2024 10:48 PM FINDINGS: Lungs: Lung bases are clear. Liver: The liver is diffusely hypodense suggesting fatty infiltration. Gallbladder and biliary ducts: The gallbladder is unremarkable. No biliary ductal dilatation. Pancreas: The pancreas demonstrates normal size. No pancreatic ductal dilatation. Spleen: The spleen demonstrates normal size. Adrenal glands: The adrenal glands have a normal appearance. Kidneys and ureters: The right kidney demonstrates normal size. The left kidney is moderately enlarged. There is moderate left perinephric fat stranding. A nonobstructing 3 mm calculus is present in the lower pole of the left kidney. No hydronephrosis. No hydroureter or ureterolithiasis. There is moderate left periureteral fat stranding. Stomach and bowel: The bowel demonstrates overall normal caliber and wall thickness. Appendix: The appendix is thin walled. Intraperitoneal space: Unremarkable. No free air. No significant fluid collection. Vasculature: The IVC and aorta have a normal appearance. Lymph nodes: No enlarged lymph nodes. Urinary bladder: The bladder is partially fluid filled. There is circumferential wall thickening of the bladder unchanged from the CT dated 12/06/2024. No perivesicular fat stranding. Findings suggest neurogenic bladder. Reproductive: Unremarkable as visualized. Bones/joints: Bones have a normal appearance. No acute fracture or suspicious bone lesion. Soft tissues: There is a small fat containing left inguinal hernia. IMPRESSION: 1. Moderately enlarged left kidney with perinephric fat stranding and periureteral fat stranding. No recurrent hydronephrosis. Acute pyelonephritis can not be excluded in the absence of intravenous contrast. Given the presence of fat stranding, differential considerations include acute pyelonephritis. 2. No other acute intra-abdominal findings. Normal appendix. 3. Hepatic steatosis. Dictated and Authenticated by: Bonita James MD. Orderin Kathleen Kelley MD
--- NOTE | 2024-12-22 21:20 | DI.VRAD_ITS ---
PROCEDURE INFORMATION: Exam: XR Chest Exam date and time: 12/22/2024 8:25 PM Age: 39 years old Clinical indication: Cough and fever; Cough, fever TECHNIQUE: Imaging protocol: Radiologic exam of the chest. Views: 2 views. COMPARISON: CT RENAL COLIC WO 12/22/2024 8:10 PM FINDINGS: Lungs: The lungs are clear. No consolidative radiopacities. Pleural spaces: No pleural effusion. No pneumothorax. Heart/Mediastinum: The heart is normal size. Bones/joints: Unremarkable. IMPRESSION: No acute cardiopulmonary findings. Dictated and Authenticated by: Bonita James MD. Orderin Kathleen Kelley MD
[2024-12-22 21:29] VITALS: BP 114/77; PULSE 110; RESP 18; O2SAT 95
[2024-12-22] MEDS: MAGNESIUM SULFATE 2 GM/50 ML BAG IV_INF (21:35)
--- NOTE | 2024-12-22 21:54 | W.PM.HP.N ---
Date of service: 12/22/24 Time of Service: 21:54 Assessment and Plan Assessment and plan (1) Pyelonephritis: Status: Inactive Assessment and plan: Continue with Cipro await culture results continue with IV fluids (2) Cystinuria: Status: Acute Assessment and plan: Consider consultation with Dr. Fernandez of neurology in AM. this is not emergent or urgent at this time. (3) Obesity: Status: Chronic Assessment and plan: Consider lifestyle modifications (4) Nephrolithiasis: Status: Chronic Assessment and plan: Recent stone removal as well as ureteral stent removal. (5) Tobacco chew use: Assessment and plan: Patient did not want any nicotine replacement therapy History of Present Illness History of Present Illness Chief Complaint: fever/pyelonephritis Narrative: 39-year-old gentleman who recently had an EEG kidney stone removed this was done on 12/07/[address] Fernandez here at this hospital. At that time patient did have a nephrostomy tube placed. There is stent was removed yesterday. Patient woke up this morning feverish and with malaise came into the ED for further evaluation and treatment. While he was in the ED his workup was completed a including abdominal CT laboratory work and urinalysis. Patient did have mild hypokalemia his UA was consistent with a urinary tract infection as well as hematuria. His CT scan did show moderately enlarged left kidney with perinephric fat stranding and periureteral fat stranding no hydronephrosis. Acute pyelonephritis cannot be excluded. Considering the fact that he was mildly tachycardic and somewhat dehydrated decision was made to admit him for observation. Patient was started on IV Cipro in the ED. Evidently the patient had quit taking his outpatient antibiotics. Review of Systems All systems reviewed & are unremarkable except as noted in HPI and below PFSH All Active Problems (Updated 12/22/24 @ 21:31 by CLAUDIA Pryor) Acute pyelonephritis (Acute) Acute UTI (Acute) Hydronephrosis with urinary obstruction due to ureteral calculus (Acute) Cystinuria (Acute) Dental infection (Acute) Abnormal blood chemistry (Acute) Globus sensation (Acute) 06/03/19 Dr Cotter , laryngoscopy. f/u in 2 months HUSSAIN (acute kidney injury) (Acute) Pharyngitis (Acute) 06/03/19 Dr Cotter, 2M f/u scheduled Nephrolithiasis (Chronic) 06/24/19- [place]sto[place] [facility] [place] Catrachito Uriostegui jr, [place] Chronic left sacroiliac joint pain (Acute) Left low back pain (Acute) Dental caries (Chronic) Gout (Chronic) Obesity (Chronic) Medical History Tobacco chew use Gout Right Foot Surgical History History of nephrolithotomy with removal of calculi (06/11/19) [facility] [place] s/p b/l PCN placement and removal of rgt stent 07/05-L ureteral stent removal,Dr Uriostegui History of laryngoscopy 06/03/19 Dr Cotter Family History Maternal Grandmother , lung cancer No problems noted. Mother Lung cancer Sister No problems noted. 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 Frequency: 3-4 times per week Seatbelt use: always Working smoke detector in home: Yes Fire extinguisher in home: Yes Carbon monox detector in home: Yes Firearms in home: No Do you feel safe at home: Yes Do you feel safe in your relationship?: Yes Meds Allergies and Home Medications Allergies Allergy/AdvReac Type Severity Reaction Status Date / Time amoxicillin Allergy rash Verified 12/22/24 19:47 Penicillins Allergy rash Verified 12/22/24 19:47 Home Medications ?Medication ?Instructions ?Recorded ?Confirmed ?Type acetaminophen 325 mg tablet 975 mg PO Q6H PRN 06/15/19 12/22/24 History ibuprofen 200 mg tablet 600 mg PO Q6H PRN 12/14/22 12/22/24 History indomethacin 25 mg capsule 50 mg (2 x 25 mg) PO TID PRN gout 11/05/24 12/22/24 Rx 5 days #90 caps potassium citrate 10 mEq (1,080 1,080 mg PO DAILY #90 tabs 12/21/24 12/22/24 Rx mg) tablet,extended release (Urocit-K 10) Exam Narrative Exam Narrative: HEENT-normocephalic atraumatic mucous membranes moist Neck-no lymphadenopathy no JVD no thyromegaly Cardiovascular-regular rate and rhythm Abdomen-left flank tenderness to palpation Neurologic-nonfocal Results Labs 12/22/24 19:48 12/22/24 19:48 Labs: Laboratory Results - last 24 hr 12/22/24 19:48 WBC 14.29 H RBC 5.00 Hgb 13.7 Hct 42.6 MCV 85 MCH 27.4 MCHC 32.2 RDW 13.3 Plt Count 308 MPV 8.8 Immature Gran % 0.5 Neutrophils % 84.3 Lymphocytes % 7.5 Monocytes % 7.5 Eosinophils % 0.1 Basophils % 0.1 Nucleated RBC % 0.0 Absolute Neutrophils 12.05 H Absolute Lymphocytes 1.07 L Absolute Monocytes 1.07 H Absolute Eosinophils 0.01 Absolute Basophils 0.01 VBG Lactate 1.9 Sodium 136 Potassium 3.9 Chloride 99 Carbon Dioxide 28.0 Anion Gap 9.0 BUN 22 H Creatinine 1.4 H Est GFR (CKD-EPI 2020) 65.57 Glucose 109 H Calcium 9.1 Magnesium 1.4 L Total Bilirubin 0.6 AST 23 ALT 30 Alkaline Phosphatase 111 Total Protein 8.2 Albumin 3.6 Lipase 27 Urine Color Yellow Urine Clarity Clear Urine pH 6.0 Ur Specific [place] 1.015 Urine Protein 30 H Urine Ketones Negative Urine Blood Moderate H Urine Nitrite Negative Urine Bilirubin Negative Urine Urobilinogen 0.2 Ur Leukocyte Esterase Moderate H Urine RBC 20-50 H Urine WBC >50 H Ur Epithelial Cells Rare Urine Crystals Negative Urine Bacteria Moderate Urine Casts Negative Urine Mucus Trace Ur Culture Indicated? Yes Urine Glucose Negative Last Vital Signs Temp 36.1 C L 12/22/24 19:49 Pulse 110 H 12/22/24 21:29 Resp 18 12/22/24 21:29 BP 114/77 12/22/24 21:29 Pulse Ox 95 12/22/24 21:29 Time Spent Time spent with Patient: <40 minutes Time was spent: preparing to see the patient(eg.review tests), obtaining and/or reviewing separately otained hiistory, ordering medications,tests, procedures, referring, communicating with other health home care attendant, indepentently interpreting results, counseling the patient and care coordination
--- NOTE | 2024-12-22 22:45 | W.PC.ACHO ---
Registration Status: REG ER Primary Language: Preferred Language: ED Information & Data Chief Complaint Nausea/Vomit/Diar 12/22/24 19:57 Triage Note Arrives via POV from home, c 12/22/24 19:43 /o ringing in ears, room spinning, N/V. started this morning. had stent placed left kidney last week. on antibiotics. has not taken anything for pain Medical / Surgical History (Last Reviewed 12/06/24 @ 22:30 by Reilly Martinez MD) Tobacco chew use Gout (Last Reviewed 12/06/24 @ 22:30 by Reilly Martinez MD) History of nephrolithotomy with removal of calculi (06/11/19) History of laryngoscopy Most Recent Vital Signs Temperature 36.1 C L 12/22/24 19:49 Temperature Source Temporal Artery Scan 12/22/24 19:49 Pulse 110 H 12/22/24 21:29 Respiratory Rate 18 12/22/24 21:29 Blood Pressure 114/77 12/22/24 21:29 Blood Pressure Mean 89 12/22/24 21:29 Blood Pressure Position Sitting 12/22/24 19:49 Pulse Oximetry 95 12/22/24 21:29 Oxygen Delivery Method Room Air 12/22/24 21:29 Oxygen Flow Rate 0 12/22/24 21:29 Pain Level 0 12/22/24 19:49 Allergies amoxicillin Allergy (Verified 12/22/24 19:47) rash [facility] Penicillins Allergy (Verified 12/22/24 19:47) rash Precautions Isolation Standard precaution 12/22/24 19:49 IV IV Catheter Type [Right Peripheral IV Antecubital] IV Catheter Gauge [Right 18 Antecubital] Diet Orders Category Date Time Status Regular/Normal [DIET] Nutrition 12/23/24 Breakfast Ordered Diagnostics 12/22/24 Range/Units 19:48 WBC 14.29 H (4.4-10.8) 10^3/uL RBC 5.00 (4.36-5.78) 10^6/uL Hgb 13.7 (13.5-17.5) g/dL Hct 42.6 (40.0-50.0) % MCV 85 (80-95) fL MCH 27.4 (27.0-33.0) pg MCHC 32.2 (32.0-36.0) % RDW 13.3 (11.8-14.1) % Plt Count 308 (130-400) 10^3/uL MPV 8.8 (8.0-11.0) fL Immature Gran % 0.5 % Neutrophils % 84.3 % Lymphocytes % 7.5 % Monocytes % 7.5 % Eosinophils % 0.1 % Basophils % 0.1 % Nucleated RBC % 0.0 (0.0-0.3) % Absolute Neutrophils 12.05 H (1.2-6.7) 10^3/uL Absolute Lymphocytes 1.07 L (1.2-3.4) 10^3/uL Absolute Monocytes 1.07 H (0.1-0.8) 10^3/uL Absolute Eosinophils 0.01 (0.0-0.7) 10^3/uL Absolute Basophils 0.01 (0.0-0.2) 10^3/uL VBG Lactate 1.9 (<or=2.0) mmol/L Sodium 136 (136-145) mmol/L Potassium 3.9 (3.5-5.1) mmol/L Chloride 99 (98-107) mmol/L Carbon Dioxide 28.0 (21.0-32.0) mmol/L Anion Gap 9.0 (3-11) mmol/L BUN 22 H (7-18) mg/dL Creatinine 1.4 H (0.70-1.30) mg/dL Est GFR (CKD-EPI 2020) 65.57 (mL/min/1.73m2) Glucose 109 H (74-106) mg/dL Calcium 9.1 (8.5-10.1) mg/dL Magnesium 1.4 L (1.8-2.4) mg/dL Total Bilirubin 0.6 (0.2-1.0) mg/dL AST 23 (15-37) U/L ALT 30 (16-63) U/L Alkaline Phosphatase 111 (46-116) U/L Total Protein 8.2 (6.4-8.2) g/dL Albumin 3.6 (3.4-5.0) g/dL Lipase 27 (<78) U/L Urine Color Yellow (Yellow) Urine Clarity Clear (Clear) Urine pH 6.0 (5-8) Ur Specific [place] 1.015 (1.005-1.025) Urine Protein 30 H (Neg-Trace) mg/dL Urine Ketones Negative (Negative) mg/dL Urine Blood Moderate H (Negative) Urine Nitrite Negative (Negative) Urine Bilirubin Negative (Negative) Urine Urobilinogen 0.2 (Up to 0.2) mg/dL Ur Leukocyte Esterase Moderate H (Negative) Urine RBC 20-50 H (0-2) HPF Urine WBC >50 H (0-5) HPF Ur Epithelial Cells Rare (Negative) HPF Urine Crystals Negative (Negative) HPF Urine Bacteria Moderate (Negative) HPF Urine Casts Negative (Negative) LPF Urine Mucus Trace (Negative) Ur Culture Indicated? Yes Urine Glucose Negative (Negative) mg/dL 12/22/24 20:35 Blood Culture - Pending Blood 12/22/24 20:16 Blood Culture - Pending Blood 12/22/24 19:48 Urine Culture - Pending Urine - Reflex from Ua Intake and Output - 24 Hour Total 12/22/24 19:41 thru 12/22/24 20:41 Intake Total 100 Balance 100 Weight 113.398 kg Intake: IV 100 Other: Emesis Description Undigested Food Falls Risk Assessment History of Falls No History 12/22/24 19:49 Contributing Factors No Factors 12/22/24 19:49 Ambulatory Aids Independent 12/22/24 19:49 Tubes/Lines W/no contributing factors 12/22/24 19:49 Gait Evaluation No gait disturbance 12/22/24 19:49 Cognition No cognitive impairment 12/22/24 19:49 Fall Total Score 10 12/22/24 19:49 Level of Risk Standard/Low Risk 12/22/24 19:49 Problems (Last Reviewed 12/06/24 @ 22:30 by Reilly Martinez MD) Acute pyelonephritis (Acute) Cystinuria (Acute) Nephrolithiasis (Chronic) Obesity (Chronic) v v v v v v v v v Sending and/or Receiving Nurses: Please use comment section below to note any information pertinent to the patient hand-off not included above. Information / Comments: kidney stent last week, now removed. Cipro and magnesium given in the ER. Alert and oriented and ambulatory. Report received from: [facility]
[2024-12-22] MEDS: Normal Saline 1,000 ML 125 ML IV (23:08)
[2024-12-22 23:17] VITALS: BP 143/82; PULSE 94; RESP 20; TEMP 36.4; O2SAT 99
[2024-12-22 23:19] VITALS: BP 145/82; PULSE 94; RESP 20; TEMP 36.4; O2SAT 98
[2024-12-23] VITALS (13 sets, daily range): BP systolic 102–143; BP diastolic 41–88; PULSE 92–118; RESP 14–22; TEMP 36.1–39.4; O2SAT 94–97
[2024-12-23] MEDS: Acetaminophen 325 MG TAB PO ×2 (01:52→11:31)
[2024-12-23] MEDS: Ibuprofen 200 MG TAB 600 MG PO ×3 (03:33→17:19)
[2024-12-23 06:22] LABS: Abs Immature Grans 0.06 10^3/uL (0.0-0.06); HCT 40.1 % (40.0-50.0); HGB 13.1 g/dL (13.5-17.5); Immature Grans % 0.5 %; MCH 28.2 pg (27.0-33.0); MCHC 32.7 % (32.0-36.0); MCV 86 fL (80-95); MPV 9.0 fL (8.0-11.0); Platelet Count 250 10^3/uL (130-400); RBC 4.65 10^6/uL (4.36-5.78); RDW 13.6 % (11.8-14.1); RDW-SD 42.4 fL; WBC 10.97 10^3/uL (4.4-10.8)
[2024-12-23] MEDS: Normal Saline 1,000 ML 125 ML IV (06:31)
[2024-12-23 06:43] LABS: ALT 33 U/L (16-63); AST 27 U/L (15-37); Albumin 2.9 g/dL (3.4-5.0); Alkaline Phosphatase 89 U/L (46-116); Anion Gap 11.1 mmol/L (3-11); BUN 21 mg/dL (7-18); Bilirubin, Total 0.9 mg/dL (0.2-1.0); CO2 24.9 mmol/L (21.0-32.0); Calcium 8.2 mg/dL (8.5-10.1); Chloride 104 mmol/L (98-107); Estimated GFR 78.89 (mL/min/1.73m2); Glucose 112 mg/dL (74-106); Potassium 3.7 mmol/L (3.5-5.1); Sodium 140 mmol/L (136-145); Total Protein 7.1 g/dL (6.4-8.2)
[2024-12-23] MEDS: CIPROFLOXACIN 400 MG/200 ML BAG 200 MG IVPB ×2 (08:10→19:50)
--- NOTE | 2024-12-23 08:18 | PDOC.CMIN ---
Date of service: 12/23/24 Time of Service: 08:18 Care Management Initial Assmt Initial Assessment Reason for Hospitalization: acute pyelonephritis Functional Status/Living Situation Patient Presentation: Rene presented to the ED last evening with c/o feeling feverish, dizzy and nauseous. He c/o some abdominal pain. He had a left renal stent placed on 12/07, the stent was removed on 12/21. Rene reported that he did not finish his outpatient antibiotics. UA in ED showed a UTI and hematuria. Left kidney noted to be enlarged. He was started on IVF and IV antibiotics. Rene was sitting up in bed when CM met with him today. He was very pleasant. He stated that he was not feeling great, but he is improved. Rene stated that he has no insurance. With Rene's permission, [employer] was contacted. Rene does not qualify for Medicaid. Open enrollment starts on 01/16 and he will be back in touch with [employer] at that time. Rene was given the patient photographer's assistant packet and he intends to fill it out. Rene works for the [employer], and will need a return to work note. Rene is aware that he will be going home on oral antibiotics. He promises to finish the course. 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) Instrumental Activities of Daily Living (ADLs): Independent Medications Medication Management: No Issues/Barriers identified Advance Directives Advance Directives: Do you have an Advance Directive: N 07/02/18, 11:00 AD On File at [facility]: N 05/29/18, 12:09 Date Asked 12/22/24 12/22/24, 19:43 AD Date Reviewed COLST On File at [facility] COLST Date Scanned Code Status Resuscitation Status Full Code Insurance Coverage/Financial Issues Insurance: self pay Financial Issues: It will be tough to pay for his hospital bills Care Team Visit Care Team Role Provider Type Christina Hwang NP MD [facility] STAFF PHYSICIAN Leatha Marsh NP Primary Care Provider NURSE PRACTITIONER CLAUDIA Pryor Emergency Provider [facility] SPECIALIST Reilly Vázquez MD Admit Provider [facility] STAFF PHYSICIAN Attending Provider Discharge Potential Discharge Needs: PCP F/U Appt Anticipated Barriers to Discharge: None Identified Patient/Family Education Needs: Review discharge instructions, discuss Ask Me Three Transportation: Private vehicle Plan: Rene will be discharged home with no new services. He will f/u with his PCP and continue per his plan of care. He will transport home in a private vehicle. CM will continue to follow. Social Determinants of Health Screening Social Determinants of health last assessed in clinic: 12/23/24 Will the Patient Participate in the Screening?: Yes Do you worry about having a steady place to live?: no Problems where you live: no known problems In the past 12 months, have you had to go without electric, gas, oil or water in your home?: no 1. Within the past 12 months, we worried whether our food would run out before we got money to buy more.: Don't know/refused 2. Within the past 12 months, the food we bought just didn't last and we didn't have money to get more.: Don't know/refused Has lack of transportation kept you from medical appointments or from doing things needed for daily living?: no Has anyone in your life made you feel unsafe or unsupported?: no How hard is it for you to pay for the very basics like food, housing, medical care, and heating? Would you say it is:: Somewhat hard Do you want help finding or keeping work or a job?: I do not need or want help If for any reason you need help with day-to-day activities such as bathing, preparing meals, shopping, managing finances, etc., do you get the help you need?: I don?t need any help How often do you feel lonely or isolated from those around you?: Rarely Do you speak a language other than Citizen [place] at home?: No Comments: medical bills will be somewhat hard to cover, patient will need doctor's note for work Health Related Social Needs Health related social needs: problems related to housing/economic circumstances (Z59.89) and feeling lonely/isolated (Z60.8) Health related social needs details: medical bills are difficult, also will need doctor's note for work PFSH All Active Problems (Updated 12/22/24 @ 21:31 by CLAUDIA Pryor) Acute pyelonephritis (Acute) Acute UTI (Acute) Hydronephrosis with urinary obstruction due to ureteral calculus (Acute) Cystinuria (Acute) Dental infection (Acute) Abnormal blood chemistry (Acute) Globus sensation (Acute) 06/03/19 Dr Cotter , laryngoscopy. f/u in 2 months HUSSAIN (acute kidney injury) (Acute) Pharyngitis (Acute) 06/03/19 Dr Cotter, 2M f/u scheduled Nephrolithiasis (Chronic) 06/24/19- cysto,stent removal (left) [facility] [place] [facility], Catrachito Uriostegui jr, MD Chronic left sacroiliac joint pain (Acute) Left low back pain (Acute) Dental caries (Chronic) Gout (Chronic) Obesity (Chronic) Medical History Tobacco chew use Gout Right Foot Surgical History History of nephrolithotomy with removal of calculi (06/11/19) [facility] s/p b/l PCN placement and removal of rgt stent 07/05-L ureteral stent removal,Dr Uriostegui History of laryngoscopy 06/03/19 Dr Cotter Family History Maternal Grandmother , lung cancer No problems noted. Mother Lung cancer Sister No problems noted. 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 Frequency: 3-4 times per week Seatbelt use: always Working smoke detector in home: Yes Fire extinguisher in home: Yes Carbon monox detector in home: Yes Firearms in home: No Do you feel safe at home: Yes Do you feel safe in your relationship?: Yes
[2024-12-23] MEDS: Potassium Citrate 1080 MG TABCR PO (08:45)
--- NOTE | 2024-12-23 13:56 | PGE_ITS ---
Date of Service Date of service: 12/23/24 Time of Service: 13:56 Assessment and Plan Assessment and plan (1) Pyelonephritis: Status: Inactive Assessment and plan: Acute pyelonephritis, likely bacterial in origin in setting of stent removal 2 days ago. Patient currently stable but requires observation stay due to IV antibiotic need and hydration. * Antibiotics: Continue ciprofloxacin IV; guide per culture and sensitivity guidance. * IV Fluids: Maintain hydration with isotonic fluids to support renal perfusion and correct any volume depletion. NS @ 125 ml/h * Monitoring: * Vital signs, urine output, and renal function (BUN 21/Cr 1.2). * Monitor for fever, flank pain, or worsening symptoms. * Labs/Imaging: * Urine culture and sensitivity pending * CT per radiologist reading: Left-sided hydronephrosis and hydroureter resolved; prior two distal ureteral stones have passed and are not seen in the bladder. Residual perinephric/ureteral streaking noted; UTI cannot be excluded. * Diffuse bladder wall thickening persists, suggestive of chronic cystitis; no intraluminal clots or gas. Single 4 mm nonobstructive stone remains in the lower pole of the left kidney; right kidney clear. * Supportive Care: Antipyretics as needed for fever, pain control. * Transition: Switch to oral antibiotics when clinically improved and able to tolerate PO intake. * Dr Fernandez will see 12/24 am. 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 Imaging revealed distal left ureteral stones causing hydronephrosis and hydroureter Left distal ureter showed a discrete narrowing ~2 cm above the ureterovesical junction, but no stones were visualized. A 6 [place] ureteral stent was successfully placed from renal pelvis to bladder. Stent was removed by Dr Fernandez without complications on 12/21 and patient was advised to stop tramadol and cipro at that time. Urology notified of patient on obs status on med surg. Dr Fernandez will see 12/24 in the am. (3) Obesity: Status: Chronic Assessment and plan: Consider lifestyle modifications (4) Nephrolithiasis: Status: Chronic Assessment and plan: See above (5) Tobacco chew use: Assessment and plan: Patient did not want any nicotine replacement therapy Subjective Subjective Patient reports: no new complaints, tolerating liquids well, tolerating a regular diet, voiding w/o difficulty and fever; denies flatus, diarrhea, vomiting or shortness of breath Exam Narrative Exam Narrative: General: Well-appearing, awake, alert ?4 Skin: Intact, no rashes or lesions Lungs: Clear to auscultation bilaterally, labored respirations Cardiovascular: Regular rate and rhythm, no murmur, no edema, no JVD Abdomen: Soft, non-tender, non-distended; L-sided CVA tenderness MSK/Neuro: Full strength (5/5) in UEs and LEs, sensation intact, normal gait Head/Eyes/ENT/Neck: Normocephalic, atraumatic, nares patent, trachea midline, supple neck Psych: Cooperative, pleasant, conversant, appropriate speech Objective Last Vital Signs Temp 38.8 C H 12/23/24 13:16 Pulse 112 H 12/23/24 13:16 Resp 20 12/23/24 13:16 BP 117/74 12/23/24 13:16 Pulse Ox 97 12/23/24 13:16 Laboratory Results - last 24 hr 12/22/24 12/23/24 19:48 05:46 WBC 14.29 H 10.97 H RBC 5.00 4.65 Hgb 13.7 13.1 L Hct 42.6 40.1 MCV 85 86 MCH 27.4 28.2 MCHC 32.2 32.7 RDW 13.3 13.6 Plt Count 308 250 MPV 8.8 9.0 Immature Gran % 0.5 0.5 Neutrophils % 84.3 81.4 Lymphocytes % 7.5 10.1 Monocytes % 7.5 7.6 Eosinophils % 0.1 0.0 Basophils % 0.1 0.4 Nucleated RBC % 0.0 0.0 Absolute Neutrophils 12.05 H 8.93 H Absolute Lymphocytes 1.07 L 1.11 L Absolute Monocytes 1.07 H 0.83 H Absolute Eosinophils 0.01 0.00 Absolute Basophils 0.01 0.04 VBG Lactate 1.9 Sodium 136 140 Potassium 3.9 3.7 Chloride 99 104 Carbon Dioxide 28.0 24.9 Anion Gap 9.0 11.1 H BUN 22 H 21 H Creatinine 1.4 H 1.2 Est GFR (CKD-EPI 2020) 65.57 78.89 Glucose 109 H 112 H Calcium 9.1 8.2 L Magnesium 1.4 L Total Bilirubin 0.6 0.9 AST 23 27 ALT 30 33 Alkaline Phosphatase 111 89 Total Protein 8.2 7.1 Albumin 3.6 2.9 L Lipase 27 Urine Color Yellow Urine Clarity Clear Urine pH 6.0 Ur Specific Talcott 1.015 Urine Protein 30 H Urine Ketones Negative Urine Blood Moderate H Urine Nitrite Negative Urine Bilirubin Negative Urine Urobilinogen 0.2 Ur Leukocyte Esterase Moderate H Urine RBC 20-50 H Urine WBC >50 H Ur Epithelial Cells Rare Urine Crystals Negative Urine Bacteria Moderate Urine Casts Negative Urine Mucus Trace Ur Culture Indicated? Yes Urine Glucose Negative Time Spent with Patient Time Spent with Patient: 25-34 minutes Time was spent: preparing to see the patient(eg.review tests), ordering medications,tests, procedures, referring, communicating with other health wound care coordinator, indepentently interpreting results, counseling the patient and care coordination
--- NOTE | 2024-12-23 14:22 | PHACLINREV_ITS ---
Pharmacy Admission Review Admission Clinical Review Admission Pharmacy Review: Acute pyelonephritis (Acute) Cystinuria (Acute) amoxicillin Allergy (Verified 12/22/24 19:47) rash Penicillins Allergy (Verified 12/22/24 19:47) rash Resuscitation Status Full Code Height 5 ft 8 in Weight 114.1 kg Comments Comments/Follow Ups: f/u cultures to narrow cipro if possible and/or change to PO Pharmacy Admission Review Renal Dosing Renal Dosing: Scr=1.2; fjbp=794; BUN 21 mg/dL (7-18) H 12/23/24 05:46 Creatinine 1.2 mg/dL (0.70-1.30) 12/23/24 05:46 Medications needing adjustments: Reviewed List of meds needing interventions: no meds need adjusting Anticoagulation Anticoagulation: Hgb 13.1 g/dL (13.5-17.5) L 12/23/24 05:46 Hct 40.1 % (40.0-50.0) 12/23/24 05:46 Plt Count 250 10^3/uL (130-400) 12/23/24 05:46 Creatinine 1.2 mg/dL (0.70-1.30) 12/23/24 05:46 DVT Prophylaxis: Intervened (no DVT ppx needed; pt is ambulatory) Opiate Usage Evaluate Pain Scale/Pains Meds: Reviewed Scheduled Bowel Reg ordered if on Opiates?: Yes Relevant Labs Relevant Labs: Mg repleted. Sodium 140 mmol/L (136-145) 12/23/24 05:46 Potassium 3.7 mmol/L (3.5-5.1) 12/23/24 05:46 Chloride 104 mmol/L (98-107) 12/23/24 05:46 Magnesium 1.4 mg/dL (1.8-2.4) L 12/22/24 19:48 Electrolytes, C-Reactive P, ESR: Reviewed DM Control DM Control: no history of DM. Serum rkopwxq=494. DM Control: Reviewed Cardiac Review Cardiac Review: ZK=150/74; IN=933. BP, HR, EF%: Reviewed QTc Review QTc: N/A (no EKG) IV to PO Switch IV Medications: Reviewed Current Meds Current Medication Order Review: Intervened (discontinued indomethacin (home med but in the past) and also on ibuprofen. ) Pharmacy Antibiotic Review Pharmacy Antibiotic Activity: Reviewed, no change (on empiric treatment with ci pro IV for acute pyelonephritis; will switch to po once clinically stable. ) Comments Comments/Follow Ups: f/u cultures to narrow cipro if possible and/or change to PO
[2024-12-23] MEDS: Ketorolac 15 MG/ML VIAL IVP (19:50)
[2024-12-23] MEDS: ACETAMINOPHEN 1,000 MG/100 ML BAG 400 MG IVPB (19:50)
[2024-12-23] MEDS: Normal Saline Flush 10 ML SYR IVP (19:51)
[2024-12-24] VITALS (7 sets, daily range): BP systolic 115–133; BP diastolic 73–91; PULSE 89–115; RESP 16–22; TEMP 36.5–39.8; O2SAT 94–97
[2024-12-24] MEDS: Normal Saline 1,000 ML 125 ML IV (01:08)
[2024-12-24] MEDS: ACETAMINOPHEN 1,000 MG/100 ML BAG 400 MG IVPB ×3 (02:16→14:14)
[2024-12-24] MEDS: Normal Saline Flush 10 ML SYR IVP ×2 (02:54→07:53)
[2024-12-24] MEDS: Ketorolac 15 MG/ML VIAL IVP ×2 (02:54→09:47)
[2024-12-24 06:30] LABS: Abs Immature Grans 0.04 10^3/uL (0.0-0.06); HCT 39.3 % (40.0-50.0); HGB 12.5 g/dL (13.5-17.5); Immature Grans % 0.5 %; MCH 27.5 pg (27.0-33.0); MCHC 31.8 % (32.0-36.0); MCV 86 fL (80-95); MPV 8.6 fL (8.0-11.0); Platelet Count 221 10^3/uL (130-400); RBC 4.55 10^6/uL (4.36-5.78); RDW 13.6 % (11.8-14.1); RDW-SD 42.9 fL; WBC 8.86 10^3/uL (4.4-10.8)
[2024-12-24 06:45] LABS: Anion Gap 9.7 mmol/L (3-11); BUN 11 mg/dL (7-18); CO2 27.3 mmol/L (21.0-32.0); Calcium 8.6 mg/dL (8.5-10.1); Chloride 105 mmol/L (98-107); Estimated GFR 87.57 (mL/min/1.73m2); Glucose 133 mg/dL (74-106); Potassium 3.9 mmol/L (3.5-5.1); Sodium 142 mmol/L (136-145)
[2024-12-24] MEDS: CIPROFLOXACIN 400 MG/200 ML BAG 200 MG IVPB (07:52)
[2024-12-24] MEDS: Potassium Citrate 1080 MG TABCR PO (07:52)
--- NOTE | 2024-12-24 11:25 | CHAPLAIN ---
Rene was sitting up in bed when I stopped in, and had a visitor with him. He said he's feeling better this morning but is just now starting to feel better. He was pleasant and easily engaged in conversation. I explaind my role and offered support. His sister is an V BELT MOLD ASSEMBLER AND CURER on Med/Surg.
--- NOTE | 2024-12-24 12:21 | W.PM.PROGNOT ---
Objective Last Vital Signs Temp 36.5 C 12/24/24 11:16 Pulse 89 12/24/24 11:16 Resp 16 12/24/24 11:16 BP 115/80 12/24/24 11:16 Pulse Ox 96 12/24/24 11:16 Laboratory Results - last 24 hr 12/24/24 06:20 WBC 8.86 RBC 4.55 Hgb 12.5 L Hct 39.3 L MCV 86 MCH 27.5 MCHC 31.8 L RDW 13.6 Plt Count 221 MPV 8.6 Immature Gran % 0.5 Neutrophils % 78.0 Lymphocytes % 12.5 Monocytes % 8.7 Eosinophils % 0.1 Basophils % 0.2 Nucleated RBC % 0.0 Absolute Neutrophils 6.91 H Absolute Lymphocytes 1.11 L Absolute Monocytes 0.77 Absolute Eosinophils 0.01 Absolute Basophils 0.02 Sodium 142 Potassium 3.9 Chloride 105 Carbon Dioxide 27.3 Anion Gap 9.7 BUN 11 Creatinine 1.1 Est GFR (CKD-EPI 2020) 87.57 Glucose 133 H Calcium 8.6
--- NOTE | 2024-12-24 14:07 | W.UROLOGYCON ---
Date of service: 12/24/24 Time of Service: 15:17 Assessment and Plan Assessment and plan (1) Acute UTI: Status: Acute Assessment and plan: Unfortunately, he developed an infection following his cystoscopy and stent removal. There is nothing on his CT scan that indicates he would benefit from replacement of his ureteral stent. I would expect that he will recover well with culture specific antibiotics. His cultures so far are not showing any specific bacteria of concern. Since he has improved clinically with the use of Cipro, if his cultures do not direct us toward a different antibiotic, I would plan to discharge him on Cipro. He already has a scheduled follow-up appointment with me for a postop ultrasound, so no new follow-up appointment should be needed. History of Present Illness History of Present Illness Chief Complaint: Pyelonephritis Narrative: This is a 39-year-old gentleman who has a history of cystinuria and recurrent cystine kidney stones. He has had multiple procedures over the years including percutaneous nephrolithotomy. He was recently seen for left sided renal colic. He had a distal ureteral stone causing hydronephrosis. He was brought to the operating room where we performed ureteroscopy. The distal ureteral stones were not present and we suspected that his stones passed shortly prior to his surgical procedure. We left a ureteral stent in place after the procedure. I remove the stent in the office on Saturday. I did not prophylax him with antibiotics for the procedure. About 24 hours later, the patient began having fevers, pain and nausea. He presented to the emergency department where we found a leukocytosis. His CT scan confirmed the improvement in his left-sided hydronephrosis and absence of his left ureteral stone. He was started on broad-spectrum antibiotics. His symptoms are gradually improving. His white blood count is decreasing as is his fever. His urine cultures are still pending. REPLACED BY [facility] All Active Problems (Updated 12/22/24 @ 21:31 by CLAUDIA Pryor) Acute pyelonephritis (Acute) Acute UTI (Acute) Hydronephrosis with urinary obstruction due to ureteral calculus (Acute) Cystinuria (Acute) Dental infection (Acute) Abnormal blood chemistry (Acute) Globus sensation (Acute) 06/03/19 Dr Cotter , laryngoscopy. f/u in 2 months HUSSAIN (acute kidney injury) (Acute) Pharyngitis (Acute) 06/03/19 Dr Cotter, 2M f/u scheduled Nephrolithiasis (Chronic) 06/24/19- cysto,stent removal (left) [facility] [place] [facility], Catrachito Uriostegui jr, MD Chronic left sacroiliac joint pain (Acute) Left low back pain (Acute) Dental caries (Chronic) Gout (Chronic) Obesity (Chronic) Medical History Tobacco chew use Gout Right Foot Surgical History History of nephrolithotomy with removal of calculi (06/11/19) [facility] [place] PCN placement and removal of rgt stent 07/05-L ureteral stent removal,Dr Uriostegui History of laryngoscopy 06/03/19 Dr Cotter Family History Maternal Grandmother , lung cancer No problems noted. Mother Lung cancer Sister No problems noted. 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 Frequency: 3-4 times per week Seatbelt use: always Working smoke detector in home: Yes Fire extinguisher in home: Yes Carbon monox detector in home: Yes Firearms in home: No Do you feel safe at home: Yes Do you feel safe in your relationship?: Yes Exam Narrative Exam Narrative: He does not appear septic or toxic at this time His vital signs are documented elsewhere His abdomen is soft with no peritoneal signs He is awake and alert I reviewed his CT scan on the PACS system. There is no residual ureteral stones and no hydronephrosis. Results Last Vital Signs Temp 36.5 C 12/24/24 11:16 Pulse 89 12/24/24 11:16 Resp 16 12/24/24 11:16 BP 115/80 12/24/24 11:16 Pulse Ox 96 12/24/24 11:16 Labs 12/24/24 06:20 12/24/24 06:20 Labs: Laboratory Results - last 24 hr 12/24/24 06:20 WBC 8.86 RBC 4.55 Hgb 12.5 L Hct 39.3 L MCV 86 MCH 27.5 MCHC 31.8 L RDW 13.6 Plt Count 221 MPV 8.6 Immature Gran % 0.5 Neutrophils % 78.0 Lymphocytes % 12.5 Monocytes % 8.7 Eosinophils % 0.1 Basophils % 0.2 Nucleated RBC % 0.0 Absolute Neutrophils 6.91 H Absolute Lymphocytes 1.11 L Absolute Monocytes 0.77 Absolute Eosinophils 0.01 Absolute Basophils 0.02 Sodium 142 Potassium 3.9 Chloride 105 Carbon Dioxide 27.3 Anion Gap 9.7 BUN 11 Creatinine 1.1 Est GFR (CKD-EPI 2020) 87.57 Glucose 133 H Calcium 8.6
--- NOTE | 2024-12-24 15:19 | DSE_ITS ---
Date of service: 12/24/24 Time of Service: 13:00 DS: Diagnosis Discharge Diagnosis (1) Acute pyelonephritis: Status: Acute Asessment and Plan: Post-stent infection without obstruction Evaluated by Dr Fernandez, no intervention required Discharging on 5 day course of ciprofloxacin Clinic followup has been arranged (2) Cystinuria: Asessment and Plan: Chronic, source of frequent stones (3) Class 2 obesity with body mass index (BMI) of 38.0 to 38.9 in adult: Status: Acute (4) Nephrolithiasis: (5) Tobacco chew use: Discharge Plan Disposition Patient Disposition: Home Condition: Improving Discharge Details Reason For Visit: Pyelonephritis Admit Date/Time: 12/22/24 21:52 Admit Provider: Reilly Vázquez Attending Provider: Reilly Vázquez Primary Care Provider: Leatha Marsh Hospital Course Hospital Course: Omar Sutherland is a 39 year old man presenting December 22 with fever, nausea and dizziness, after ureteral stent placement on December 21. Patient has history of cystinuria (cysteine in the urine). He was admitted for pyelonephritis an started on IV antibiotics. On December 24 he was evaluated by urologist and further interventions are not indicated. At this time he is safe to return home on PO antibiotics, with urine cultures pending. Home Meds and New Rx's Prescriptions: New ciprofloxacin HCl [Cipro] 500 mg tablet 500 mg PO Q12H Qty: 10 0RF Continued potassium citrate [Urocit-K 10] 10 mEq (1,080 mg) tablet extended release 1,080 mg PO DAILY Qty: 90 3RF Discontinued ibuprofen 200 mg tablet 600 mg PO Q6H PRN Patient Comments: Takes 2-3 tabs (400-600 mg) Q6-8H indomethacin 25 mg capsule 50 mg PO TID PRN (Reason: gout) 5 Days Qty: 90 1RF Rx Instructions: administer with food or milk acetaminophen 325 mg tablet 975 mg PO Q6H PRN Rx Instructions: constipation per [facility] [place] [place] note dated 06/11/19 cgc Discharge Instructions Stand Alone Forms: Nursing Discharge Form Referrals: Leatha Marsh NP [Primary Care Provider, Medicine] Referral Note: Please contact your PCP to make a follow-up appointment within 1-2 weeks. Activity:: Activity as Tolerated Equipment/Supplies:: No Equipment Needed Diet:: As Tolerated Discharge Orders Discharge Orders: Discharge Order (Routine); Ordered 12/24/24 Ordered By: Mu Meyer Discharge Data Discharge Date/Time-TO BE ENTERED AT DEPARTURE: 12/24/24 15:52 DS: Summary Time Spent with Patient providing and/or coordinating discharge services: Less than 30 minutes Status at Discharge Functional status at discharge: independent ambulation Overall status at discharge: patient is progressing back to baseline Mental Status: mental status grossly normal Speech and Movement: speech and movement normal Mood: congruent mood Affect: normal affect Quality:SDOH Health Related Social Needs: Health related social needs house/econ circumstance lo stefano/isolated Health related social needs details medical bills are difficult, also will need doctor's note for work Health related social needs details: medical bills are difficult, also will need doctor's note for work Exam Psych Mental Status: mental status grossly normal Speech and Movement: speech and movement normal Mood: congruent mood Affect: normal affect DS: Data Vitals/I&O Vitals and I&O: Vital Signs Temperature 37.1 C 12/24/24 15:07 Temperature Source Temporal Artery Scan 12/24/24 15:07 Pulse 91 H 12/24/24 15:07 Pulse Rhythm Regular 12/22/24 23:19 Respiratory Rate 16 12/24/24 15:07 Respiratory Effort Normal, Non-Labored 12/22/24 23:19 Respiratory Depth Normal 12/22/24 23:19 Respiratory Pattern Normal 12/22/24 23:19 Blood Pressure 133/91 H 12/24/24 15:07 Blood Pressure Mean 105 12/24/24 15:07 Blood Pressure Position Sitting 12/22/24 19:49 Pulse Oximetry 96 12/24/24 15:07 Oxygen Delivery Method Room Air 12/24/24 15:07 Oxygen Flow Rate 0 12/24/24 15:07 Pain Level 3 12/24/24 08:00 Comment RN notified 12/23/24 07:32 Intake & Output 12/23/24 12/24/24 12/24/24 23:59 11:59 23:59 Intake Total 0 / 4732.917 600 / 600 Output Total 0 / 4150 1400 / 1400 Balance 40 / 582.917 -800 / -800 Weight 114.7 kg Intake: IV 1320 / 2442.917 200 / 200 Oral 770 / 2290 400 / 400 Output: Urine 2050 / 4150 1400 / 1400 Other: Urine Color Yellow Yellow Urine Appearance Clear Clear Urine Odor Normal Comment pt voids in urinal. Data Completed and Pending Labs on day of discharge: Labs from last 24 hours 12/24/24 06:20 WBC 8.86 RBC 4.55 Hgb 12.5 L Hct 39.3 L MCV 86 MCH 27.5 MCHC 31.8 L RDW 13.6 Plt Count 221 MPV 8.6 Immature Gran % 0.5 Neutrophils % 78.0 Lymphocytes % 12.5 Monocytes % 8.7 Eosinophils % 0.1 Basophils % 0.2 Nucleated RBC % 0.0 Absolute Neutrophils 6.91 H Absolute Lymphocytes 1.11 L Absolute Monocytes 0.77 Absolute Eosinophils 0.01 Absolute Basophils 0.02 Sodium 142 Potassium 3.9 Chloride 105 Carbon Dioxide 27.3 Anion Gap 9.7 BUN 11 Creatinine 1.1 Est GFR (CKD-EPI 2020) 87.57 Glucose 133 H Calcium 8.6 Preliminary micro results at discharge 12/22/24 19:48 Urine - Reflex from Ua Urine Culture - Preliminary Gram positive kimberlee Gram positive [email or web address] 12/22/24 20:35 Blood Blood Culture - Preliminary NO GROWTH 24 HOURS 12/22/24 20:16 Blood Blood Culture - Preliminary NO GROWTH 24 HOURS PFSH All Active Problems (Updated 12/28/24 @ 22:20 by Mu Meyer MD) Class 2 obesity with body mass index (BMI) of 38.0 to 38.9 in adult (Acute) Acute pyelonephritis (Acute) Hydronephrosis with urinary obstruction due to ureteral calculus (Acute) Dental infection (Acute) Abnormal blood chemistry (Acute) Globus sensation (Acute) 06/03/19 Dr Cotter , laryngoscopy. f/u in 2 months HUSSAIN (acute kidney injury) (Acute) Pharyngitis (Acute) 06/03/19 Dr Cotter, 2M f/u scheduled Chronic left sacroiliac joint pain (Acute) Left low back pain (Acute) Dental caries (Chronic) Gout (Chronic) Medical History Tobacco chew use Gout Right Foot Surgical History History of nephrolithotomy with removal of calculi (06/11/19) [facility] [place] [place] s/p b/l PCN placement and removal of rgt stent 07/05-L ureteral stent removal,Dr Uriostegui History of laryngoscopy 06/03/19 Dr Cotter Family History Maternal Grandmother , lung cancer No problems noted. Mother Lung cancer Sister No problems noted. 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 Frequency: 3-4 times per week Seatbelt use: always Working smoke detector in home: Yes Fire extinguisher in home: Yes Carbon monox detector in home: Yes Firearms in home: No Do you feel safe at home: Yes Do you feel safe in your relationship?: Yes Time Spent with Patient Time Spent with Patient: <45 minutes Time was spent: preparing to see the patient(eg.review tests), obtaining and/or reviewing separately otained hiistory, ordering medications,tests, procedures, referring, communicating with other health geriatric care manager, indepentently interpreting results, counseling the patient and care coordination
--- NOTE | 2024-12-24 15:59 | CMDISCH_ITS ---
Date of service: 12/24/24 Time of Service: 15:59 LACE Index Scoring Tool Questions: Length of Stay (in days): 2 Was the patient admitted via the E.D.?: Yes E.D. Visits: 2 Answers: Total Score: 7 Risk of Readmission: Low Risk Care Management Discharge Plan Reason for Hospitalization: UTI Discharge Plan: Rene was discharged home this afternoon with no new services. He will f/u with his PCP and continue per his plan of care. Rene was given a work note to return on Thursday 12/28 with no restrictions. Rene was driven home in a private vehicle with his girl friend. Patient/Family Education Needs: review of discharge instructions, activity, limitations, and discuss Ask me 3. SDOH Health Related Social Needs: Health related social needs house/econ circumstance lo stefano/isolated Health related social needs details medical bills are difficult, also will need doctor's note for work Health related social needs details: medical bills are difficult, also will need doctor's note for work
== END 2024-12-24 15:52 | disposition home or self-care (01) ==
LOC: ER 21:31 → MS 22:54
PROVIDERS: Nurse Practitioner Family; Admitting Provider Hospitalist; Emergency Provider Physician Assistant; PCP Nurse Practitioner; Responsible Provider Family Medicine; Visit Provider Hospitalist
DX: N10 Acute pyelonephritis (principal); E72.01 Cystinuria; E66.9 Obesity, unspecified; M54.50 Low back pain, unspecified; K02.9 Dental caries, unspecified; Z87.442 Personal history of urinary calculi; F17.220 Nicotine dependence, chewing tobacco, uncomplicated; Z68.38 Body mass index [BMI] 38.0-38.9, adult; E87.6 Hypokalemia; R00.0 Tachycardia, unspecified; E86.0 Dehydration; Z59.89 Other problems related to housing and economic circumstances; R45.89 Other symptoms and signs involving emotional state
CPT/HCPCS: 00123; 36415; 80048; 80053; 83690; 87040; 87077; 96361; 96365; 96367; 96375; 99285; 71046; 74176; 81003; 81015; 83605; 83735; 85025; 87086; 87186; 99222; 99231; 99238; G0378; J0131; J0744; J1885; J3475

== ENCOUNTER → 2025-01-18 02:14 | Outpatient (CLI) | payer SELFPAY ==
--- NOTE | 2025-01-18 07:00 | DI.US_ITS ---
Exam(s) US RENAL EXAM: US RENAL CLINICAL HISTORY: ? hydronephrosis,calculus prox rt ureter,cystinuria,n13.2. TECHNIQUE: Corral scale, color and spectral Doppler were used. COMPARISON: CT CT RENAL COLIC WO from 12/22/2024 FINDINGS: Renal size in cm: Right: 11.7. Left: 14.7. Echogenicity: Normal. Hydronephrosis: No. Cyst or mass: No. Nephrolithiasis: There are 2 echogenic foci seen in the lower pole of the left kidney. The larger measures 4 mm. Other findings: None. Bladder:The urinary bladder is incompletely distended. There is thickening of the wall of the bladder up to 6 mm. Ureteral jets: Right: Not visualized on this examination. Left: Not visualized on this examination. Prevoid vol:74 cc Postvoid vol:14 cc Prostate: 2 cc Renal color flow: Symmetric and within normal limits. IMPRESSION: Nephrolithiasis without evidence of hydronephrosis. DATA REPOSITORY:
[2025-01-18 09:53] LABS: Glucose Negative (Negative)
== END ==
PROVIDERS: PCP Nurse Practitioner; Visit Provider Urology
DX: N20.0 Calculus of kidney (principal); N13.2 Hydronephrosis with renal and ureteral calculous obstruction; N10 Acute pyelonephritis; R82.89 Other abnormal findings on cytological and histological examination of urine
CPT/HCPCS: 76770; 81003; 81015; 87086